=== PATIENT | female | born 1980 | race Caucasian/White ===

== ENCOUNTER 2017-09-17 10:27 | Emergency (ER) | payer BC ==
[2017-09-17 11:38] LABS: Absolute Monocytes 0.5 K/uL (0.1-1.3); Basophils % 0.7 % (0-1.3); Eosinophils % 2.3 % (0-4.4); Hematocrit 42.3 % (36.0-45.0); Lymphocytes % 34.2 % (15.3-44.8); MCV 93.2 fL (80-100); MPV 8.8 fL (7.6-11.3); Monocytes % 5.7 % (3.3-12.3); RBC Red Blood Cell Count 4.53 M/uL (3.86-4.86)
[2017-09-17 11:52] LABS: Bicarbonate 27 mEq/L (21-31); Glucose Level 120 mg/dL (65-120); Lipase 19 U/L (22-51); Potassium 3.5 mEq/L (3.6-5.0); Sodium Level 139 mEq/L (135-145)
[2017-09-17 11:58] LABS: ALT/SGPT 20 IU/L (10-60); AST/SGOT 25 IU/L (10-42); Albumin 4.8 g/dL (3.2-5.5); Alkaline Phosphatase 68 IU/L (42-121); BUN Blood Urea Nitrogen 14 mg/dL (6-20); Bilirubin Direct < 0.1 mg/dL (0-0.2); Bilirubin Total 0.5 mg/dL (0.3-1.2); Magnesium 2.1 mg/dL (1.8-2.5); Protein, Total 8.1 g/dL (6.0-8.3)
[2017-09-17 12:16] LABS: Urine Blood NEGATIVE (NEG); Urine Glucose NEGATIVE (NEG); Urine Protein 1+ (NEG); Urine Specific Gravity >1.030 (1.005-1.030)
--- NOTE | 2017-09-17 12:29 | RAD REPORT ---
EXAM DESCRIPTION: Wil Single View09/17/2017 11:43 am CLINICAL HISTORY: Chest pain COMPARISON: none FINDINGS: The lungs appear clear of acute infiltrate. The heart is normal size IMPRESSION: No acute abnormalities displayed
[2017-09-17] MEDS ORDERED: MAGNE/ALUM HYDROXD 30 ML UCUP ONE (12:35)
[2017-09-17] MEDS ORDERED: LIDOCAINE VISCOUS 2% SOLN 15 ML UDC ONE (12:35)
--- NOTE | 2017-09-17 13:05 | RAD REPORT ---
EXAM DESCRIPTION: CT - Abdomen Pelvis W Contrast - 09/17/2017 12:53 pm CLINICAL HISTORY: Abdominal pain with nausea. COMPARISON: June 2016 TECHNIQUE: Computed axial tomography of the abdomen pelvis was obtained. 100 cc Isovue-300 was admin istered intravenously. Oral contrast was not requested which limits evaluation of bowel. All CT scans are performed using dose optimization technique as appropriate and may include automated exposure control or mA/KV adjustment according to patient size. FINDINGS: The liver, spleen, pancreas, adrenal and kidneys appear unremarkable. There is no evidence of diverticulitis. IMPRESSION: No acute abnormality is displayed.
--- NOTE | 2017-09-17 13:06 | RAD REPORT ---
EXAM DESCRIPTION: US - Abdomen Exam Limited - 09/17/2017 11:47 am CLINICAL HISTORY: Abdominal pain. COMPARISON: None. FINDINGS: The gallbladder wall is not thickened. A gallstone is not seen. The biliary tree is normal caliber. IMPRESSION: Unremarkable gallbladder ultrasound.
[2017-09-17] MEDS ORDERED: LORazepam 2 MG/ML VIAL ONE (14:00)
--- NOTE | 2017-09-17 14:03 | EKG ---
Test Date: 2017-09-17 Test Time: 11:11:27 Template Layout Worker: MARCELINO MEASUREMENT RESULTS: Intervals: Rate: 85 DC: 138 QRSD: 70 QT: 372 QTc: 442 [place]: P: 74 DC: 138 QRS: 75 T: 60 INTERPRETIVE STATEMENTS: Normal sinus rhythm Normal ECG No previous ECG available for comparison Electronically Signed On 09-17-17 14:03:04 CDT by Jean Marie Duval
--- NOTE | 2017-09-17 14:04 | ER ---
Nurse's Notes [facility] Name: Feli Espinoza Age: 36 yrs Sex: Female : 1980 Arrival Date: 09/17/2017 Time: 10:33 Bed 19 Private MD: Out, [facility] Diagnosis: Anxiety disorder, unspecified Presentation: 09/17 10:36 Presenting complaint: Patient states: I was recently diagnosed with MVP but I have been la1 having worsening SOB since then (about 2 weeks ago). Transition of care: patient was not received from another setting of care. Onset of symptoms was September 17, 2017. Initial Sepsis Screen: Does the patient meet any 2 criteria? No. Patient's initial sepsis screen is negative. Does the patient have a suspected source of infection? No. Patient's initial sepsis screen is negative. Care prior to arrival: None. 10:36 Method Of Arrival: Ambulatory la1 10:36 Acuity: CARIDAD 3 la1 Historical: - Allergies: 10:35 No Known Allergies; la1 - PMHx: 10:35 mvp; Anxiety; la1 - Immunization history:: Adult Immunizations up to date. - Social history:: Smoking status: Patient/guardian denies using tobacco. Screenin:37 Abuse screen: Denies threats or abuse. Denies injuries from another. Nutritional ch screening: No deficits noted. Tuberculosis screening: No symptoms or risk factors identified. Fall Risk None identified. Assessment: 11:37 General: Appears in no apparent distress. comfortable, Behavior is anxious. Pain: ch Denies pain. Cardiovascular: Heart tones S1 S2 present Capillary refill < 3 seconds in bilateral fingers toes Clubbing of nail beds is absent Patient's skin is warm and dry. Pulses are all present. Edema is absent. Rhythm is sinus rhythm. Respiratory: Airway is patent Respiratory effort is even, unlabored, Breath sounds are clear bilaterally. Onset: The symptoms/episode began/occurred gradually. GI: No signs and/or symptoms were reported involving the gastrointestinal system. Abdomen is round non-distended. : No signs and/or symptoms were reported regarding the genitourinary system. Derm: Skin is pink, warm \T\ dry. 11:40 Reassessment: gallbladder US completed. ch 12:47 Reassessment: Patient appears in no apparent distress at this time. Patient and/or ch family updated on plan of care and expected duration. Pain level reassessed. Patient is alert, oriented x 3, equal unlabored respirations, skin warm/dry/pink. pt refuses GI coctail now, states she want to know what is wrong with her. I tell pt that we still have studies pending. pt transported to CT via wheelchair now. aaox4, no s/s of distress. pt appears anxious, and speak rapidly. pt states she feelsslightly better. 13:00 Reassessment: Patient appears in no apparent distress at this time. No changes from ch previously documented assessment. 14:05 Reassessment: Patient appears in no apparent distress at this time. Patient and/or ch family updated on plan of care and expected duration. Pain level reassessed. pt states she wants to go home.pt medicated per orders, and discharged. 14:20 Reassessment: Patient appears in no apparent distress at this time. Patient and/or ch family updated on plan of care and expected duration. Pain level reassessed. Patient is alert, oriented x 3, equal unlabored respirations, skin warm/dry/pink. Vital Signs: 10:37 BP 137 / 100; Pulse 85; Resp 19; Temp 97.3; Pulse Ox 100% on R/A; la1 11:37 Pulse 76; Resp 14; Pulse Ox 99% on R/A; Pain 0/10; ch 12:30 BP 127 / 78; Pulse 62; Resp 14; Temp 97.8; Pulse Ox 99% on R/A; Pain 0/10; ch 13:43 BP 119 / 76; Pulse 84; Resp 16; Temp 98.3; Pulse Ox 99% on R/A; Pain 0/10; ch 14:05 BP 132 / 90; Pulse 73; Resp 15; Temp 98.3; Pulse Ox 99% on R/A; Pain 0/10; ch ED Course: 10:33 Patient arrived in ED. sb2 10:35 Out, of Town is Private Physician. sb2 10:37 Triage completed. la1 10:37 Arm band placed on left wrist. la1 10:41 Suhas Stratton PA is PHCP. jr8 10:41 Carlos Monson MD is Attending Physician. jr8 11:28 Initial lab(s) drawn, by me, sent to lab. EKG done, by ED staff, reviewed by Suhas CASTANO. Inserted saline lock: 20 gauge in left antecubital area, using aseptic technique. Blood collected. 11:31 Lilly Mosley, RN is Primary Nurse. ch 11:37 No apparent distress. Resting quietly. ch 11:37 Patient has correct armband on for positive identification. Bed in low position. Call light in reach. Side rails up X 1. Adult w/ patient. phototypesetting equipment monitor on. Pulse ox on. NIBP on. Warm blanket given. 11:37 No provider procedures requiring assistance completed. ch 11:39 X-ray completed. Portable x-ray completed in exam room. jw2 11:40 XRAY Chest (1 view) In Process Unspecified. EDMS 11:43 Ultrasound completed. Patient tolerated well. sg3 12:53 CT Abd/Pelvis - W/Contrast In Process Unspecified. EDMS 12:54 CT completed. Patient tolerated procedure well. Patient moved back from CT. cw1 14:05 IV discontinued, intact, bleeding controlled, No redness/swelling at site. Pressure ch dressing applied. Administered Medications: 13:20 Not Given (Physician Discretion): GI Cocktail without - (Maalox Suspension 30 jr8 ml, Lidocaine Liquid 2 % 15 ml) PO once 13:55 Drug: Ativan 1 mg Route: IVP; Site: left antecubital; 14:20 Follow up: Response: No adverse reaction; Marked relief of symptoms ch Outcome: 14:03 Discharge ordered by MD. blue 14:21 Discharged to home ambulatory, with family. ch 14:21 Condition: stable 14:21 Discharge instructions given to patient, family, Instructed on discharge instructions, follow up and referral plans. Demonstrated understanding of instructions, follow-up care. 14:21 Patient left the ED. ch Signatures: Dispatcher [employer] EDLA Lilly Mosley, RN Neri Lord ch, Crystal cw1 Suhas Stratton PA PA jr8 Amilcar Castañeda RN RN Lauryn Dumont jw2 Meme Jesus sg3 Sweetie Groves sb2 Corrections: (The following items were deleted from the chart) 11:47 11:47 In radiology for Abdomen Limited+US.RAD.BRZ. EDMS sg3
--- NOTE | 2017-09-17 14:04 | EDPHYS ---
Physician Documentation [facility] Name: Feli Espinoza Age: 36 yrs Sex: Female : 1980 Arrival Date: 09/17/2017 Time: 10:33 Bed 19 Private MD: Out, [facility] ED Physician Carlos Monson HPI: 09/17 11:12 This 36 yrs old Female presents to ER via Ambulatory with complaints of jr8 Shortness Of Breath. 11:12 Onset: The symptoms/episode began/occurred gradually. Associated signs and symptoms: jr8 Pertinent positives: abdominal discomfort . Severity of symptoms: At their worst the symptoms were moderate in the emergency department the symptoms are unchanged. The patient has not experienced similar symptoms in the past. The patient has been recently seen by a physician:. Patient stated that she had originally gone to [facility] for shortness of breath. Diagnosed with MVP and anxiety. Had follow up with cardiology. Echocardiogram, stress test, and angiogram was performed. MVP diagnosed but of mild variance. No other acute cardiac findings noted. Given Bystolic and Klonopin. Stated that she still continues to have tight bloating epigastric feeling and a sense of not being able to take a deep breath along with having shortness of breath. Klonopin not helping with the shortness of breath . Historical: - Allergies: 10:35 No Known Allergies; la1 - PMHx: 10:35 mvp; Anxiety; la1 - Immunization history:: Adult Immunizations up to date. - Social history:: Smoking status: Patient/guardian denies using tobacco. ROS: 11:12 Eyes: Negative for injury, pain, redness, and discharge, ENT: Negative for injury, jr8 pain, and discharge, Neck: Negative for injury, pain, and swelling, Cardiovascular: Negative for chest pain, palpitations, and edema, Back: Negative for injury and pain, MS/Extremity: Negative for injury and deformity, Skin: Negative for injury, rash, and discoloration, Neuro: Negative for headache, weakness, numbness, tingling, and seizure. 11:12 Respiratory: Positive for shortness of breath, Negative for cough, dyspnea on exertion, hemoptysis, orthopnea, pleurisy, sputum production, wheezing. 11:12 Abdomen/GI: Positive for nausea, abdominal distension. Exam: 11:12 Eyes: Pupils equal round and reactive to light, extra-ocular motions intact. Lids and jr8 lashes normal. Conjunctiva and sclera are non-icteric and not injected. Cornea within normal limits. Periorbital areas with no swelling, redness, or edema. ENT: Nares patent. No nasal discharge, no septal abnormalities noted. Tympanic membranes are normal and external auditory canals are clear. Oropharynx with no redness, swelling, or masses, exudates, or evidence of obstruction, uvula midline. Mucous membranes moist. Neck: Trachea midline, no thyromegaly or masses palpated, and no cervical lymphadenopathy. Supple, full range of motion without nuchal rigidity, or vertebral point tenderness. No Meningismus. Cardiovascular: Regular rate and rhythm with a normal S1 and S2. No gallops, murmurs, or rubs. Normal PMI, no JVD. No pulse deficits. Respiratory: Lungs have equal breath sounds bilaterally, clear to auscultation and percussion. No rales, rhonchi or wheezes noted. No increased work of breathing, no retractions or nasal flaring. Back: No spinal tenderness. No costovertebral tenderness. Full range of motion. Skin: Warm, dry with normal turgor. Normal color with no rashes, no lesions, and no evidence of cellulitis. MS/ Extremity: Pulses equal, no cyanosis. Neurovascular intact. Full, normal range of motion. Neuro: Awake and alert, GCS 15, oriented to person, place, time, and situation. Cranial nerves II-XII grossly intact. Motor strength 5/5 in all extremities. Sensory grossly intact. Cerebellar exam normal. Normal gait. 11:12 Constitutional: The patient appears alert, awake, anxious. 11:12 Abdomen/GI: Inspection: abdomen appears normal, Bowel sounds: active, all quadrants, Palpation: soft, in all quadrants, mild abdominal tenderness, in the epigastric area and right upper quadrant, mass, is not appreciated, rebound tenderness, is not appreciated, voluntary guarding, is not appreciated, involuntary guarding, is not appreciated, no appreciated organomegaly, Indicators: McBurney's point is not tender, Vang's sign is negative, Rovsing's sign is negative, Obturator sign is negative, Psoas sign is negative, Liver: no appreciated palpable abnormalities, tenderness, is not appreciated. Vital Signs: 10:37 BP 137 / 100; Pulse 85; Resp 19; Temp 97.3; Pulse Ox 100% on R/A; la1 11:37 Pulse 76; Resp 14; Pulse Ox 99% on R/A; Pain 0/10; ch 12:30 BP 127 / 78; Pulse 62; Resp 14; Temp 97.8; Pulse Ox 99% on R/A; Pain 0/10; ch 13:43 BP 119 / 76; Pulse 84; Resp 16; Temp 98.3; Pulse Ox 99% on R/A; Pain 0/10; ch 14:05 BP 132 / 90; Pulse 73; Resp 15; Temp 98.3; Pulse Ox 99% on R/A; Pain 0/10; ch MDM: 10:41 Patient medically screened. [facility] 14:02 Data reviewed: vital signs, nurses notes, lab test result(s), EKG, radiologic studies, [facility] CT scan, plain films, ultrasound, and as a result, I will discharge patient. Data interpreted: Pulse oximetry: on room air is 99 %. Interpretation: normal. Counseling: I had a detailed discussion with the patient and/or guardian regarding: the historical points, exam findings, and any diagnostic results supporting the discharge/admit diagnosis, lab results, radiology results, the need for outpatient follow up, a family practitioner, a objects conservator, to return to the emergency department if symptoms worsen or persist or if there are any questions or concerns that arise at home. 09/17 10:59 Order name: Basic Metabolic Panel; Complete Time: 12:08 09/17 10:59 Order name: BNP; Complete Time: 12:20 [facility] 09/17 10:59 Order name: CBC with Diff; Complete Time: 11:49 09/17 10:59 Order name: LFT's; Complete Time: 12:08 09/17 10:59 Order name: Magnesium; Complete Time: 12:08 09/17 10:59 Order name: PT-INR; Complete Time: 11:55 09/17 10:59 Order name: Troponin (emerg Dept Use Only); Complete Time: 12:08 09/17 10:59 Order name: XRAY Chest (1 view); Complete Time: 12:37 09/17 10:59 Order name: Lipase; Complete Time: 12:08 09/17 10:59 Order name: DD; Complete Time: 11:55 09/17 11:18 Order name: US Abdomen Limited; Complete Time: 13:08 09/17 11:52 Order name: Urine Dipstick--Ancillary (enter results); Complete Time: 12:20 ag 09/17 11:52 Order name: Urine --Ancillary (enter results); Complete Time: 12:20 ag 09/17 12:10 Order name: CT Abd/Pelvis - W/Contrast; Complete Time: 13:09/17 10:59 Order name: EKG; Complete Time: 10:59 09/17 10:59 Order name: Cardiac monitoring; Complete Time: 11:37 09/17 10:59 Order name: EKG - Nurse/Tech; Complete Time: 11:37 09/17 10:59 Order name: IV Saline Lock; Complete Time: 11:37 09/17 10:59 Order name: Labs collected and sent; Complete Time: 11:37 09/17 10:59 Order name: O2 Per Protocol; Complete Time: 11:37 09/17 10:59 Order name: O2 Sat Monitoring; Complete Time: 11:37 09/17 10:59 Order name: Urine Dipstick-Ancillary (obtain specimen); Complete Time: 11:58 09/17 10:59 Order name: Urine Test (obtain specimen); Complete Time: 11:58 jr8 Administered Medications: 13:20 Not Given (Physician Discretion): GI Cocktail without - (Maalox Suspension 30 jr8 ml, Lidocaine Liquid 2 % 15 ml) PO once 13:55 Drug: Ativan 1 mg Route: IVP; Site: left antecubital; 14:20 Follow up: Response: No adverse reaction; Marked relief of symptoms ch Disposition: 09/18 09:18 Co-signature as Attending Physician, Carlos Monson MD I agree with the assessment and holli plan of care. Disposition: 09/17/17 14:03 Discharged to Home. Impression: Anxiety disorder, unspecified. - Condition is Stable. - Discharge Instructions: Panic Attacks, Generalized Anxiety Disorder. - Medication Reconciliation Form, Thank You Letter, Antibiotic Education, Prescription Opioid Use form. - Follow up: Private Physician; When: 2 - 3 days; Reason: Recheck today's complaints, Continuance of care, Re-evaluation by your physician. - Problem is new. - Symptoms have improved. Signatures: Dispatcher [employer] Lilly Rutledge, RN RN Carlos Montero MD MD cha Roszak, Josh, PA PA jr8 Amilcar Castañeda RN RN la1 Corrections: (The following items were deleted from the chart) 09/17 14:21 14:03 09/17/2017 14:03 Discharged to Home. Impression: Anxiety disorder, unspecified. Condition is Stable. Forms are Medication Reconciliation Form, Thank You Letter, Antibiotic Education, Prescription Opioid Use. Follow up: Private Physician; When: 2 - 3 days; Reason: Recheck today's complaints, Continuance of care, Re-evaluation by your physician. Problem is new. Symptoms have improved. jr8
[2017-09-17 14:27] VITALS: O2SAT 99
[2017-09-17 14:30] VITALS: TEMP 98.3
[2017-09-17 14:31] VITALS: BP 132/90
== END 2017-09-17 14:21 | disposition home or self-care (01) ==
LOC: ER 10:27
DX: F41.9 Anxiety disorder, unspecified (principal)
CPT/HCPCS: 36415; 71045; 74177; 76705; 80048; 80076; 81003; 81025; 83690; 83735; 83880; 84484; 85025; 85379; 85610; 93005; 96374; 99285; Q9967

== ENCOUNTER 2018-11-28 06:23 | Day surgery (SDC) | payer BC ==
[2018-11-26 13:48] LABS: Urine Appearance CLEAR; Urine Bilirubin NEGATIVE (NEG); Urine Blood NEGATIVE (NEG); Urine Color YELLOW; Urine Glucose NEGATIVE (NEG); Urine Protein NEGATIVE (NEG); Urine Urobilinogen 0.2 mg/dL (0.2-1.0)
[2018-11-26 13:50] LABS: Urine Microscopic Reflex ORDER UMIC
[2018-11-26 13:52] LABS: Absolute Lymphocytes (CBC) 2.2 K/uL (0.7-4.9); Basophils % 0.5 % (0-1.3); Hematocrit 41.5 % (36.0-45.0); Lymphocytes % 32.6 % (15.3-44.8); MPV 9.3 fL (7.6-11.3); RBC Red Blood Cell Count 4.35 M/uL (3.86-4.86)
[2018-11-26 13:56] LABS: Urine Bacteria 20-50 /HPF (<20); Urine Culture Reflex Order NOT NEEDED; Urine RBC <5 /HPF (NONE SEEN)
--- OUTSIDE RECORDS SUMMARY | 2018-11-28 06:26 | XMS REPORT ---
:1980 [facility] Address [address] [place] [address] Care Team Providers Name Role Phone Unavailable Unavailable Unavailable Problems This patient has no known problems. Allergies, Adverse Reactions, Alerts This patient has no known allergies or adverse reactions. Medications This patient has no known medications. Results Test Description Test Time Test Comments Text Results Atomic Results Result Comments Automated Differential 2018-11-08 23:01:16 Test Item Value Reference Range Comments Neutro Auto (test code=Neutro Auto) 71.9 % 36.0-70.0 Lymph Auto (test code=Lymph Auto) 22.8 % 12.0-44.0 Hamblen Auto (test code=Hamblen Auto) 4.4 % 0.0-11.0 Eos, Auto (test code=Eos, Auto) 0.2 % 0.0-7.0 Basophil Auto (test code=Basophil Auto) 0.5 % 0.0-2.0 Neutro Absolute (test code=Neutro Absolute) 6.4 x10 1.6-7.4 Lymph Absolute (test code=Lymph Absolute) 2.02 x10 .50-4.60 Hamblen Absolute (test code=H[place] Absolute) .39 x10 .00-1.20 Eos Absolute (test code=Eos Absolute) 0.02 x10 0.00-0.74 Baso Absolute (test code=Baso Absolute) 0.04 x10 0.00-0.21 IG [id number] 23:01:16 Test Item Value Reference Range Comments IG (test code=IG) 0.2 % 0.0-5.0 IG Abs (test code=IG Abs) 0 x10 Complete Blood Count with [id number] 23:01:15 Test Item Value Reference Range Comments WBC (test code=WBC) 8.9 x10 4.4-10.5 RBC (test code=RBC) 4.26 x10 3.75-5.20 Hgb (test code=Hgb) 13.6 g/dL 12.2-14.8 MCV (test code=MCV) 96.20 fL 80.00-100.00 Hct (test code=Hct) 41.0 % 36.5-44.4 MCHC (test code=MCHC) 33.20 g/dL 32.00-37.50 RDW CV (test code=RDW CV) 12.7 % 11.5-14.5 MCH (test code=MCH) 31.9 pg 27.0-32.5 Platelets (test 265.0 x10 140.0-440.0 code=Platelets) MPV (test code=MPV) 11.3 fL Slide Review (test code=Slide Auto Auto Result created by Review) GL_SJM_[id number]_AUTO nRBC (test code=nRBC) 0 NRBC Abs (test code=NRBC Abs) 0.00 x10 IPF (test code=IPF) 0 % Lipid [id number] 22:51:51 Test Item Value Reference Range Comments Cholesterol Total (test 152 mg/dL 0-200 RISK OF HEART DISEASEPublished code=Cholesterol Total) by [place] [employer] Analyte Optimal Borderline Increased RiskCHOL <200 200-239 >240TRIG <150 150-199 >200HDL Male >60 <40HDL Female >60 <50LDL <100 130-159 >160LDL Near optimal is 100-129 Triglycerides (test 64 mg/dL 9-200 code=Triglycerides) HDL (test code=HDL) 52 mg/dL 50-60 LDL (test code=LDL) 87 mg/dL 0-130 The equation being used in this calculation is LDL=(Chol - HDL) - (Trig / 5) VLDL (test code=VLDL) 13 mg/dL 5-40 The equation being used in this calculation is VLDL=Trig / 5 Chol/HDL (test 2.9 ratio 0.0-4.4 code=Chol/HDL) LDL/HDL Ratio (test 2 The equation being used in this code=LDL/HDL Ratio) calculation is LDL/HDL Ratio=LDL Calc/HDL Chol Comprehensive Metabolic [id number] 22:51:50 Test Item Value Reference Range Comments Sodium Level (test code=Sodium Level) 137.0 mmol/L 135.0-145.0 Potassium Level (test code=Potassium Level) 4.6 mmol/L 3.5-5.1 Chloride Level (test code=Chloride Level) 103 mmol/L 98-105 CO2 (test code=CO2) 27 mmol/L 22-29 Anion Gap (test code=Anion Gap) 7 mmol/L 7-16 BUN (test code=BUN) 15.50 mg/dL 6.00-20.00 Creatinine Level (test code=Creatinine Level) 0.50 mg/dL 0.50-0.90 BUN/Creat Ratio (test code=BUN/Creat Ratio) 31 Glucose Level (test code=Glucose Level) 95 mg/dL 70-115 Calcium Level (test code=Calcium Level) 9.3 mg/dL 8.3-10.5 Alk Phos (test code=Alk Phos) 52 U/L 35-104 Bilirubin Total (test code=Bilirubin Total) <0.1 mg/dL 0.1-0.9 Albumin Level (test code=Albumin Level) 4.2 g/dL 3.5-5.2 Protein Total (test code=Protein Total) 6.6 g/dL 6.4-8.3 ALT (test code=ALT) 13 U/L 1-33 AST (test code=AST) 16 U/L 1-32 Globulin (test code=Globulin) 2.4 g/dL 2.9-3.1 A/G Ratio (test code=A/G Ratio) 1.8 ratio Comprehensive Metabolic [id number] 22:51:50 Test Item Value Reference Range Comments Sodium Level (test 137.0 mmol/L 135.0-145.0 code=Sodium Level) Potassium Level (test 4.6 mmol/L 3.5-5.1 code=Potassium Level) Chloride Level (test 103 mmol/L 98-105 code=Chloride Level) CO2 (test code=CO2) 27 mmol/L 22-29 Anion Gap (test 7 mmol/L 7-16 code=Anion Gap) BUN (test code=BUN) 15.50 mg/dL 6.00-20.00 Creatinine Level (test 0.50 mg/dL 0.50-0.90 code=Creatinine Level) BUN/Creat Ratio (test 31 code=BUN/Creat Ratio) Glucose Level (test 95 mg/dL 70-115 code=Glucose Level) Calcium Level (test 9.3 mg/dL 8.3-10.5 code=Calcium Level) Alk Phos (test code=Alk 52 U/L 35-104 Phos) Bilirubin Total (test <0.1 mg/dL 0.1-0.9 code=Bilirubin Total) Albumin Level (test 4.2 g/dL 3.5-5.2 code=Albumin Level) Protein Total (test 6.6 g/dL 6.4-8.3 code=Protein Total) ALT (test code=ALT) 13 U/L 1-33 AST (test code=AST) 16 U/L 1-32 Globulin (test 2.4 g/dL 2.9-3.1 code=Globulin) A/G Ratio (test code=A/G 1.8 ratio Ratio) eGFR AA (test code=eGFR >60 mL/min/1.73 m2 eGFR (estimated AA) Glomerular Filtration Rate) is an estimated value, calculated from the patient's serum creatinine using the MDRD equation. It is NOT the patient's actual GFR. The eGFR provides a more clinically useful measure of kidney disease than serum creatinine alone.This calculation takes sex and race into account, if the information is provided. If the race is not provided, and the patient is -Af[place], multiply by 1.212. If sex is not provided, and the patient is female, multiply by 0.742. Results for patients <18 years of age have not been validated by the MDRD study and should be interpreted with caution. eGFR Result Interpretation:eGFR > or=60 is in the Normal RangeeGFR < 60 may mean kidney diseaseeGFR < 15 may mean kidney failure Ranges recommended by the National Kidney Foundation, http://nkdep.nih.gov Comprehensive Metabolic [id number] 22:51:50 Test Item Value Reference Range Comments Sodium Level (test 137.0 mmol/L 135.0-145.0 code=Sodium Level) Potassium Level (test 4.6 mmol/L 3.5-5.1 code=Potassium Level) Chloride Level (test 103 mmol/L 98-105 code=Chloride Level) CO2 (test code=CO2) 27 mmol/L 22-29 Anion Gap (test 7 mmol/L 7-16 code=Anion Gap) BUN (test code=BUN) 15.50 mg/dL 6.00-20.00 Creatinine Level (test 0.50 mg/dL 0.50-0.90 code=Creatinine Level) BUN/Creat Ratio (test 31 code=BUN/Creat Ratio) Glucose Level (test 95 mg/dL 70-115 code=Glucose Level) Calcium Level (test 9.3 mg/dL 8.3-10.5 code=Calcium Level) Alk Phos (test code=Alk 52 U/L 35-104 Phos) Bilirubin Total (test <0.1 mg/dL 0.1-0.9 code=Bilirubin Total) Albumin Level (test 4.2 g/dL 3.5-5.2 code=Albumin Level) Protein Total (test 6.6 g/dL 6.4-8.3 code=Protein Total) ALT (test code=ALT) 13 U/L 1-33 AST (test code=AST) 16 U/L 1-32 Globulin (test 2.4 g/dL 2.9-3.1 code=Globulin) A/G Ratio (test code=A/G 1.8 ratio Ratio) eGFR AA (test code=eGFR >60 mL/min/1.73 m2 eGFR (estimated AA) Glomerular Filtration Rate) is an estimated value, calculated from the patient's serum creatinine using the MDRD equation. It is NOT the patient's actual GFR. The eGFR provides a more clinically useful measure of kidney disease than serum creatinine alone.This calculation takes sex and race into account, if the information is provided. If the race is not provided, and the patient is -[place], multiply by 1.212. If sex is not provided, and the patient is female, multiply by 0.742. Results for patients <18 years of age have not been validated by the MDRD study and should be interpreted with caution. eGFR Result Interpretation:eGFR > or=60 is in the Normal RangeeGFR < 60 may mean kidney diseaseeGFR < 15 may mean kidney failure Ranges recommended by the National Kidney Foundation, http://nkdep.nih.gov eGFR Non-AA (test >60.00 mL/min/1.73 eGFR (estimated code=eGFR Non-AA) m2 Glomerular Filtration Rate) is an estimated value, calculated from the patient's serum creatinine using the MDRD equation. It is NOT the patient's actual GFR. The eGFR provides a more clinically useful measure of kidney disease than serum creatinine alone.This calculation takes sex and race into account, if the information is provided. If the race is not provided, and the patient is -[place], multiply by 1.212. If sex is not provided, and the patient is female, multiply by 0.742. Results for patients <18 years of age have not been validated by the MDRD study and should be interpreted with caution. eGFR Result Interpretation:eGFR > or=60 is in the Normal RangeeGFR < 60 may mean kidney diseaseeGFR < 15 may mean kidney failure Ranges recommended by the National Kidney Foundation, http://nkdep.nih.gov XR Chest 1 View [id number] 11:17:46Patient: MANJULA NEWBERRY Date/Time09/01/201710:56 CDTReason for ExamShortness of breathReportEXAM: XR Chest 1 View FrontalLOCATION: [id number]: Shortness of breathCOMPARISON: None available time of interpretation.FINDINGS:Single view of the chest.No indwelling lines or tubes.No pneumothorax.The lungs are clear. No pleural effusions are present. The mediastinal contours are unremarkable. No acute osseous findings are present.IMPRESSION:Noacute cardiopulmonary abnormality. Final Dictated by: MD Ramos Haider ADictated DT/TM: 09/01/2017 11:17 amSigned by : MD Ramos Haider ASignshahzad (Electronic Signature): 09/01/2017 11:17 am
[2018-11-28] MEDS ORDERED: Ringers Lactate 1,000 ML IV ONE ×2 (07:07→11:21)
[2018-11-28] MEDS ORDERED: SCOPOLAMINE HYDROBROMIDE PATCH TD ONE (07:07)
[2018-11-28] MEDS ORDERED: NA CHLORIDE 0.9% 1,000 ML ONE (07:19)
[2018-11-28] MEDS ORDERED: FENTANYL CITR 100 MCG/2 ML ONE (07:26)
[2018-11-28] MEDS ORDERED: PROPOFOL 200 MG/20 ML VIAL IV ONE (07:26)
[2018-11-28] MEDS ORDERED: ROCURONIUM 50 MG/5 ML VIAL IV ONE (07:26)
[2018-11-28] MEDS ORDERED: dexAMETHasone 10 MG/ML VIAL ONE (07:27)
[2018-11-28] MEDS ORDERED: MIDAZOLAM HCL 2 MG/2 ML INJ ONE (07:27)
[2018-11-28] MEDS ORDERED: NS 0.9% VIAL 30 ML ONE (07:27)
[2018-11-28] MEDS ORDERED: ONDANSETRON 4 MG/2 ML VIAL ONE (07:28)
[2018-11-28] MEDS ORDERED: VECURONIUM 10 MG/VIAL IV ONE (07:28)
[2018-11-28] MEDS ORDERED: LIDOCAINE 2% MPF 5 ML VIAL ONE (07:30)
[2018-11-28] MEDS ORDERED: EPHEDRINE SULF 50 MG/ML VIAL ONE (08:21)
[2018-11-28] MEDS ORDERED: Phenylephrine HCl 10 MG/ML 1 ML VIAL ONE (08:21)
[2018-11-28] MEDS ORDERED: NEOSTIGMINE 1 MG/ML -10 ML VIAL ONE (09:11)
[2018-11-28] MEDS ORDERED: GLYCOPYRROLATE 0.2 MG/ML SYR ONE (09:11)
[2018-11-28] MEDS ORDERED: KETOROLAC 30 MG/ML INJ ONE (09:16)
[2018-11-28] MEDS: HYDROMORPHONE HCL 1 MG/ML INJ ONE ×4 (09:47→10:20)
[2018-11-28] MEDS: HYDROCODONE/APAP 5/325 MG TAB ONE ×2 (11:00→12:24)
[2018-11-28] MEDS ORDERED: PROMETHAZINE 25 MG/ML VIAL ONE (11:09)
[2018-11-28 12:28] VITALS: BP 95/65; TEMP 98.2; O2SAT 100
--- NOTE | 2018-11-28 20:32 | OP ---
Date of Procedure: 11/28/2018 Surgeon: Nina Dillon MD Documentation Supervisor: Berta Aguila. Preoperative Diagnoses: Pelvic pain, menorrhagia, AUB-O/L/A, low back pain, and dysmenorrhea. Postoperative Diagnoses: Pelvic pain, menorrhagia, AUB-O/L/A, low back pain, dysmenorrhea, and left sigmoid adhesions. Procedures Performed: 1.Diagnostic hysteroscopy, D and C. 2.Diagnostic laparoscopy, lysis of adhesions of the sigmoid to the left lateral wall, then left salp ingectomy after salpingolysis, and right lateral wall peritoneal biopsy. Specimens: Endometrial curettings, right lateral wall peritoneal biopsy, and left tube. Anesthesia: General endotracheal. Complications: None. Drains: None. Patient's Condition: Stable. Findings: The left tube was adhered to the sigmoid and then the sigmoid adhered to the lateral wall all the way down to the base of the left uterosacral. Since the patient's pain was significant in th is location and going to the back, decided that this would be important to take down the adhesions an d these were taken down. The tube was also removed because it had slight dilatation and the adhesion s to the bowel. There was a paratubal cyst as well. The right tube appeared to be unremarkable, bot h ovaries unremarkable. Possible peritoneal lesions, not consistent with endometriosis, but suspicio us in the right lateral wall immediately lateral to the right uterosacral ligament about 3 cm away fr om the insertion of the uterosacral. This was excised with scissors and sent for biopsy. Indications: Patient is a 38-year-old who presented to me with severe left lower quadrant pain and l eft back pain. She was in the ER and evaluated for her pain and on evaluation in the office, no evid ence of any pelvic inflammatory disease, no adnexal masses were noted. Her imaging from the ER was r eviewed and there were no significant masses either. Patient has some bowel symptoms including bloat ing and constipation. She was referred to GI for this. However, since her pain has been cyclical wi th heavy periods and the pelvic pain is recent in onset and severe, suspicion for endometriosis was h igh. She was told by Dr. Murphy in the past that she could have endometriosis. She also had back wor kup by Dr. Pemberton who diagnosed her with bulging lumbar disk and she had gotten some injections and narcotics in the past as well. So, we discussed overall all her findings and potential diagnosis of endometriosis. If this was not present, then she would have to follow up with her GI and continue t he workup. No necessity for hysterectomy, which is what the patient had contemplated at one point. So, diagnostic hysteroscopy to make sure there is no atypia or malignancy and laparoscopy to rule in or rule out endometriosis and if there is any other pathology, I would address it at the time. Description Of Procedure: After informed consent was verified, she was taken back to OR, placed in s upine fashion on the operating table. After general anesthesia was given, she was placed in a dorsal lithotomy position, arms tucked by the side, positioning checked, pump started SCDs, and time-out do ne. Pelvic exam was performed. Uterus found to be enlarged, about 8 weeks' size, well mobile, no no dularity in the uterosacral ligaments was noted. Abdomen, vulva, vagina, and perineum were prepped and draped in a sterile fashion. Hadley was placed to drain the bladder. Cervix was exposed with a speculum. Anterior lip grasped with 2 Allis clamps. SlimLine diagnostic hysteroscope with a 30-degree lens and normal saline was used for direct hyster oscopy through the cervical canal and uterine cavity was entered. The endometrium appeared to be thi ckened. No intracavitary masses. Scope was removed. Endometrial curettings were performed thorough ly with the help of #2 and #4 curettes. Once this was done, a diagnostic VCare was introduced and fi xed in place. This area was draped. A 1 cm infraumbilical incision was made with a scalpel using the open laparoscopy technique. Fascia was incised, tagged, and peritoneum entered sharply with a knife. S retractor was placed. Eugene in troduced, site of entry checked, unremarkable upper abdominal surfaces including the gallbladder, jasson er, peritoneum above the liver were all visualized. Omentum appeared to be unremarkable as well. Pa tient was placed in Trendelenburg position, 5 mm left lower quadrant and suprapubic ports were placed to evaluate for endometriosis and findings as above. The left sigmoid was adhered to the lateral wa ll. The ureter was completely not visual. The left paracolic gutter was with adhesions and the tube was adhered to this in this complex. So, the distal part of the tube was dilated and appeared to be inflamed. The paratubal cyst was visualized, which was unremarkable. The ovary appeared to be comp letely unremarkable. No evidence of any endometriosis was found in the entire pelvis. So, I took do wn the adhesions due to the patient's symptoms being on the left as well. This started at the natura l attachment of the sigmoid and with the help of sharp dissection, the peritoneal adhesions were open ed up, not opening the peritoneum. From the distal aspect, I started to retract the bowel towards me and adhesions were taken down from the left lateral wall sharply with push-spread technique and crea ting windows. Then, the top dissection was started. The peritoneum posteriorly was opened up. Then , the ureter was identified at the level of the pelvic brim. As the ureter was kept medial, the carmen l adhesions were taken down laterally, staying in the plane without getting retroperitoneal. Once al l adhesions were taken down, the entire course of the ureter was well visualized and was unremarkable . The tubal adhesions had been also removed in the course of the dissection of the sigmoid adhesions . The mesosalpinx was incised, opened up with scissors, and windows were created to take down the tu be. The distal part of the mesosalpinx was taken with the EnSeal. The proximal part was then dissec phoebe with the EnSeal as well and removed in its entirety. Specimen was retrieved through the umbilica l port. Thorough irrigation and suction were performed. There were some erythematous spots on the p eritoneum lateral to the uterosacral ligament, about 3-5 cm proximal to the insertion at the uterus. This was picked up. The peritoneum was incised with scissors and the entire lesion was excised with the help of the same. There was excellent hemostasis. Thorough irrigation and suction were perform ed again. The trocars were removed under direct vision and no evidence of any bleeding. Gas was yunier ufflated. Umbilical port was removed under direct vision and the fascia closed with the help of the tag sutures tied on both sides. Subcutaneous had simple 0 Vicryl placed and then all skin incisions closed with the help of interrupted 4-0 Vicryls. VCare and Hadley were removed. Instrument, needle, and sponge counts were correct at the end of the case. The patient tolerated the procedure well, and she was extubated in the OR and taken to PACU in a stable condition. She will follow up with me in 1 week. She has been given 20 tablets of [place] and instructed that she cannot take her tramadol with it. was present at the time I counseled the patient and is aware. Ibuprofen every 6 hours 600 mg orally with some food. If there are any complaints, then she will call us. MICHAEL Voice ID: [id number] Report ID: [id number]
== END 2018-11-28 12:15 | disposition home or self-care (01) ==
LOC: OR 06:23
PROVIDERS: ATTEND Obstetrics & Gynecology
PROC: 0WBF4ZX Excision of Abdominal Wall, Percutaneous Endoscopic Approach, Diagnostic (ICD-10-PCS; 2018-11-28)
PROC: 0UDB7ZX Extraction of Endometrium, Via Natural or Artificial Opening, Diagnostic (ICD-10-PCS; 2018-11-28)
PROC: 0UJD8ZZ Inspection of Uterus and Cervix, Via Natural or Artificial Opening Endoscopic (ICD-10-PCS; 2018-11-28)
PROC: 0UT64ZZ Resection of Left Fallopian Tube, Percutaneous Endoscopic Approach (ICD-10-PCS; principal; 2018-11-28 07:30)
DX: N80.0 Endometriosis of uterus (principal); N83.8 Other noninflammatory disorders of ovary, fallopian tube and broad ligament; N92.0 Excessive and frequent menstruation with regular cycle; N93.9 Abnormal uterine and vaginal bleeding, unspecified; N94.6 Dysmenorrhea, unspecified; M54.5 Low back pain; N73.6 Female pelvic peritoneal adhesions (postinfective); I34.1 Nonrheumatic mitral (valve) prolapse; F41.9 Anxiety disorder, unspecified; F32.9 Major depressive disorder, single episode, unspecified; F17.210 Nicotine dependence, cigarettes, uncomplicated; Z79.899 Other long term (current) drug therapy
CPT/HCPCS: 58661; 49321; 58558; 85025; 36415; 86900; 86850; 81025; 86901; 88302; 88305; J2704; J2710; J2550; J2370; J2250; J3010; J1100; J1170 ×2; J7030; J2405; 81003; 81015

== ENCOUNTER 2019-03-22 15:31 | Emergency (ER) | payer BC ==
--- OUTSIDE RECORDS SUMMARY | 2019-03-22 15:34 | XMS REPORT ---
:1980 [facility] Address [address] [place] [address] Care Team Providers Name Role Phone Unavailable [...] Auto (test code=Lymph Auto) 22.8 % 12.0-44.0 Pen[place] Auto (test code=[place] Auto) 4.4 % 0.0-11.0 Eos, Auto (test code=Eos, Auto) 0.2 % 0.0-7.0 Basophil Auto (test code=Basophil Auto) 0.5 % 0.0-2.0 Neutro Absolute (test code=Neutro Absolute) 6.4 x10 1.6-7.4 Lymph Absolute (test code=Lymph Absolute) 2.02 x10 .50-4.60 [place] Absolute (test code=[place] Absolute) .39 x10 .00-1.20 Eos Absolute (test code=Eos Absolute) 0.02 x10 0.00-0.74 Baso Absolute (test code=Baso Absolute) 0.04 x10 0.00-0.21 IG [id number] 23:01:16 Test Item Value Reference Range Comments IG (test code=IG) 0.2 % 0.0-5.0 IG Abs (test code=IG Abs) 0 x10 Complete Blood Count with [id number] 23:01:15 Test Item Value Reference Range Comments [...] x10 IPF (test code=IPF) 0 % Lipid [id number] 22:51:51 Test Item Value Reference Range Comments Cholesterol Total (test 152 mg/dL 0-200 RISK OF HEART DISEASEPublished code=Cholesterol Total) by [place] [employer] Analyte Optimal Borderline Increased RiskCHOL [...] is LDL/HDL Ratio=LDL Calc/HDL Chol Comprehensive Metabolic [id number] 22:51:50 Test Item Value Reference Range Comments [...] (test code=A/G Ratio) 1.8 ratio Comprehensive Metabolic [id number] 22:51:50 Test Item Value Reference Range Comments [...] is not provided, and the patient is -[place], multiply by 1.212. If sex is not [...] the National Kidney Foundation, http://nkdep.nih.gov Comprehensive Metabolic [id number] 22:51:50 Test Item Value Reference Range Comments [...] is not provided, and the patient is -[place], multiply by 1.212. If sex is not [...] is not provided, and the patient is -[place], multiply by 1.212. If sex is not [...] Kidney Foundation, http://nkdep.nih.gov XR Chest 1 View [id number] 11:17:46Patient: MANJULA NEWBERRY Date/Time09/01/201710:56 CDTReason for ExamShortness of breathReportEXAM: XR Chest 1 View FrontalLOCATION: [id number]: Shortness of breathCOMPARISON: None available time of [...]
[2019-03-22 16:25] LABS: Absolute Lymphocytes (CBC) 2.6 K/uL (0.7-4.9); Basophils % 0.4 % (0-1.3); Hematocrit 43.2 % (36.0-45.0); Lymphocytes % 28.3 % (15.3-44.8); MPV 9.3 fL (7.6-11.3); RBC Red Blood Cell Count 4.48 M/uL (3.86-4.86)
[2019-03-22 16:41] LABS: BUN Blood Urea Nitrogen 14 mg/dL (7-18); Bicarbonate 29 mmol/L (21-32); Glucose Level 100 mg/dL (74-106); Potassium 3.7 mmol/L (3.5-5.1); Sodium Level 140 mmol/L (136-145)
[2019-03-22 17:30] LABS: Urine Blood NEGATIVE (NEG); Urine Glucose NEGATIVE (NEG); Urine Protein NEGATIVE (NEG); Urine pH 7.5 (5.0-7.0)
[2019-03-22] MEDS ORDERED: KETOROLAC 30 MG/ML INJ ONE (17:40)
[2019-03-22] MEDS ORDERED: ONDANSETRON 4 MG/2 ML VIAL ONE (18:25)
[2019-03-22] MEDS ORDERED: MORPHINE 4 MG/ML SYR ONE (18:25)
--- NOTE | 2019-03-22 18:46 | ER ---
Nurse's Notes [facility] Name: Feli Espinoza Age: 38 yrs Sex: Female : 1980 Arrival Date: 03/22/2019 Time: 15:34 Bed 25 Private MD: Diagnosis: Irregular menstruation, unspecified;Low back pain Presentation: 03/22 15:34 Presenting complaint: Patient states: was on menstrual cycle for 2 weeks with clots and sv stopped Monday. Yesterday started having vaginal brown spotting only when she wipes. Today started having red vaginal bleeding and back pain, reports yesterday she was having right upper thigh pain and left groin pain. c/o anxiety and lightheadedness. Transition of care: patient was not received from another setting of care. Onset of symptoms was March 21, 2019. Care prior to arrival: None. 15:34 Method Of Arrival: Ambulatory sv 15:34 Acuity: CARIDAD 2 sv 15:40 Risk Assessment: Do you want to hurt yourself or someone else? Patient reports no tr5 desire to harm self or others. Initial Sepsis Screen: Does the patient meet any 2 criteria? Temp <36.0*C (96.8*F)) or > 38.3*C (100.9*F). HR > 90 bpm. Does the patient have a suspected source of infection? No. Patient's initial sepsis screen is negative. Historical: - Allergies: 15:37 adhesive tape; sv - PMHx: 15:37 Anxiety; MVP; sv 15:39 Mitral valve prolapse; Hypertension; sv - Immunization history:: Adult Immunizations up to date. - Social history:: Smoking status: Patient/guardian denies using tobacco, never smoked. - Ebola Screening: : No symptoms or risks identified at this time. Screenin:00 Abuse screen: Denies threats or abuse. Nutritional screening: No deficits noted. tr5 Tuberculosis screening: No symptoms or risk factors identified. Fall Risk None identified. Assessment: 16:00 General: Appears uncomfortable, Behavior is calm, cooperative, appropriate for age. tr5 Pain: Complains of pain in right low back Pain currently is 8 out of 10 on a pain scale. Quality of pain is described as aching. Neuro: Level of Consciousness is awake, alert, obeys commands, Oriented to person, place, time, Crate Icer are equal bilaterally Moves all extremities. Cardiovascular: Heart tones present Capillary refill < 3 seconds Pulses are all present. Edema is absent. Respiratory: Airway is patent Respiratory effort is even, unlabored, Respiratory pattern is regular, symmetrical. GI: No signs and/or symptoms were reported involving the gastrointestinal system. : Urine is clear, Reports vaginal bleeding that is bright red. EENT: No signs and/or symptoms were reported regarding the EENT system. Derm: No signs and/or symptoms reported regarding the dermatologic system. Musculoskeletal: No signs and/or symptoms reported regarding the musculoskeletal system. 17:00 Reassessment: Patient appears in no apparent distress at this time. No changes from tr5 previously documented assessment. Patient and/or family updated on plan of care and expected duration. Pain level reassessed. Patient is alert, oriented x 3, equal unlabored respirations, skin warm/dry/pink. 18:00 Reassessment: Patient appears in no apparent distress at this time. Patient and/or tr5 family updated on plan of care and expected duration. Pain level reassessed. Patient is alert, oriented x 3, equal unlabored respirations, skin warm/dry/pink. Vital Signs: 15:37 BP 149 / 113; Pulse 92; Resp 22; Temp 98.3(O); Pulse Ox 100% ; Weight 54.43 kg; Height sv 5 ft. 1 in. (154.94 cm); Pain 8/10; 17:35 BP 139 / 99; Pulse 83; Resp 16; Pulse Ox 100% on R/A; tr5 18:36 BP 157 / 80; Pulse 101; Resp 17; Pulse Ox 99% on R/A; tr5 15:37 Body Mass Index 22.67 (54.43 kg, 154.94 cm) sv ED Course: 15:34 Patient arrived in ED. sv 15:35 Catarina Terry F[facility]-C [facility]. kb 15:35 Helio Rosas MD is Attending Physician. kb 15:36 Triage completed. sv 15:37 Arm band placed on. sv 15:48 Bret Warner, BONG is Primary Nurse. tr5 16:00 Bed in low position. Call light in reach. Side rails up X 1. tr5 16:00 Initial lab(s) drawn, by me, sent to lab. Inserted saline lock: 22 gauge in left tr5 antecubital area, using aseptic technique. 16:40 Urine collected: clean catch specimen, clear, loly colored. jp3 17:16 US Transvaginal Study (Probe) In Process Unspecified. EDMS 18:09 No provider procedures requiring assistance completed. IV discontinued. tr5 Administered Medications: 17:45 Drug: TORadol - Ketorolac 15 mg Route: IVP; Site: left antecubital; tr5 18:14 Follow up: Response: Pain is unchanged, physician notified tr5 18:33 Drug: morphine 4 mg {Note: RASS:0.} Route: IVP; Site: left antecubital; tr5 18:33 Drug: Zofran 4 mg Route: IVP; Site: left antecubital; tr5 Outcome: 18:09 Discharged to home via wheelchair, with family. tr5 18:09 Condition: stable 18:09 Discharge instructions given to patient, family, Instructed on discharge instructions, follow up and referral plans. medication usage, Demonstrated understanding of instructions, follow-up care, medications, Prescriptions given X 1. 18:45 Discharge ordered by . kb 19:22 Patient left the ED. tr5 Signatures: Dispatcher [employer] EDSC Catarina Terry, SHAHNAZ DE ANDA-Twyla Bonilla, RN RN Dago Chin jp3 Bret Warner, RN RN tr5 Corrections: (The following items were deleted from the chart) 15:37 15:34 Presenting complaint: Patient states: was on menstrual cycle for 2 weeks with sv clots and stopped Monday. Yesterday started having vaginal brown spotting only when she wipes. Today started having red vaginal bleeding. sv 15:37 15:34 Presenting complaint: Patient states: was on menstrual cycle for 2 weeks with sv clots and stopped Monday. Yesterday started having vaginal brown spotting only when she wipes. Today started having red vaginal bleeding and back pain, reports yesterday she was having right upper thigh pain. sv 15:39 15:37 Temp 98.3F Oral; 54.43 kg; Height 5 ft. 1 in.; BMI: 22.6; sv sv 15:40 15:34 Presenting complaint: Patient states: was on menstrual cycle for 2 weeks with sv clots and stopped Monday. Yesterday started having vaginal brown spotting only when she wipes. Today started having red vaginal bleeding and back pain, reports yesterday she was having right upper thigh pain and left groin pain. sv 15:40 15:34 Acuity: CARIDAD 3 sv sv 18:34 18:33 morphine 4 mg IVP in left antecubital tr5 tr5
--- NOTE | 2019-03-22 18:46 | EDPHYS ---
Physician Documentation [facility] Name: Feli Espinoza Age: 38 yrs Sex: Female : 1980 Arrival Date: 03/22/2019 Time: 15:34 Bed 25 Private MD: ED Physician Helio Rosas HPI: 03/22 17:35 This 38 yrs old Female presents to ER via Ambulatory with complaints of kb Vaginal Bleeding, Back Pain. 17:35 The patient presents with vaginal bleeding that is. Onset: The symptoms/episode kb began/occurred 2 week(s) ago. Modifying factors: The symptoms are alleviated by nothing, the symptoms are aggravated by nothing. Associated signs and symptoms: Pertinent positives: vaginal bleeding. Severity of symptoms: At their worst the symptoms were moderate, in the emergency department the symptoms have improved. The patient has not experienced similar symptoms in the past. The patient has not recently seen a physician. Pt reports her last period lasted 2 weeks, stopped on Monday. Started having spotting again yesterday that was a brown color and today it is bright red again. States she has never had a period that lasted that long. Is concerned about uterine cancer because it runs in the family and her cousin was just diagnosed. States that her anxiety has been threw the roof lately. Pt appears anxious during history, tearful and states "I'm getting emotional, but I'm trying not to.". Historical: - Allergies: 15:37 adhesive tape; sv - PMHx: 15:37 Anxiety; MVP; sv 15:39 Mitral valve prolapse; Hypertension; sv - Immunization history:: Adult Immunizations up to date. - Social history:: Smoking status: Patient/guardian denies using tobacco, never smoked. - Ebola Screening: : No symptoms or risks identified at this time. ROS: 17:33 Constitutional: Negative for fever, chills, and weight loss, Neck: Negative for injury, kb pain, and swelling, Cardiovascular: Negative for chest pain, palpitations, and edema, Respiratory: Negative for shortness of breath, cough, wheezing, and pleuritic chest pain, Abdomen/GI: Negative for nausea, vomiting, diarrhea, and constipation. + left pelvic pain MS/Extremity: Negative for injury and deformity, Skin: Negative for injury, rash, and discoloration, Neuro: Negative for headache, weakness, numbness, tingling, and seizure. 17:33 Back: Positive for pain at rest, pain with movement, of the low back area. 17:33 : Positive for vaginal bleeding. Exam: 17:33 Constitutional: This is a well developed, well nourished patient who is awake, alert, kb and in no acute distress. Head/Face: Normocephalic, atraumatic. Neck: Trachea midline, no thyromegaly or masses palpated, and no cervical lymphadenopathy. Supple, full range of motion without nuchal rigidity, or vertebral point tenderness. No Meningismus. Chest/axilla: Normal chest wall appearance and motion. Nontender with no deformity. No lesions are appreciated. Cardiovascular: Regular rate and rhythm with a normal S1 and S2. No gallops, murmurs, or rubs. Normal PMI, no JVD. No pulse deficits. Respiratory: Lungs have equal breath sounds bilaterally, clear to auscultation and percussion. No rales, rhonchi or wheezes noted. No increased work of breathing, no retractions or nasal flaring. Abdomen/GI: Soft, non-tender, with normal bowel sounds. No distension or tympany. No guarding or rebound. No evidence of tenderness throughout. Back: No spinal tenderness. No costovertebral tenderness. Full range of motion. Skin: Warm, dry with normal turgor. Normal color with no rashes, no lesions, and no evidence of cellulitis. MS/ Extremity: Pulses equal, no cyanosis. Neurovascular intact. Full, normal range of motion. Neuro: Awake and alert, GCS 15, oriented to person, place, time, and situation. Cranial nerves II-XII grossly intact. Motor strength 5/5 in all extremities. Sensory grossly intact. Cerebellar exam normal. Normal gait. Vital Signs: 15:37 BP 149 / 113; Pulse 92; Resp 22; Temp 98.3(O); Pulse Ox 100% ; Weight 54.43 kg; Height sv 5 ft. 1 in. (154.94 cm); Pain 8/10; 17:35 BP 139 / 99; Pulse 83; Resp 16; Pulse Ox 100% on R/A; tr5 18:36 BP 157 / 80; Pulse 101; Resp 17; Pulse Ox 99% on R/A; tr5 15:37 Body Mass Index 22.67 (54.43 kg, 154.94 cm) sv MDM: 15:40 Patient medically screened. kb 15:53 Data reviewed: vital signs, nurses notes. Data interpreted: Pulse oximetry: on room air kb is 100 %. Interpretation: normal. 18:44 Counseling: I had a detailed discussion with the patient and/or guardian regarding: the kb historical points, exam findings, and any diagnostic results supporting the discharge/admit diagnosis, lab results, radiology results, the need for outpatient follow up, an OB/Gyne specialist, to return to the emergency department if symptoms worsen or persist or if there are any questions or concerns that arise at home. 19:20 ED course: US tech impression 4cm and 2cm lesions on uterus. Ovaries unremarkable. Pt kb educated to follow up with ENGINEER AND GEOLOGIST for further evaluation. 03/22 15:54 Order name: CBC with Diff; Complete Time: 16:30 kb 03/22 15:54 Order name: Basic Metabolic Panel; Complete Time: 16:43 kb 03/22 15:54 Order name: US Transvaginal Study (Probe) kb 03/22 16:49 Order name: Urine Dipstick--Ancillary (enter results); Complete Time: 17:32 ms 03/22 16:49 Order name: Urine --Ancillary (enter results); Complete Time: 17:32 ms 03/22 15:38 Order name: Urine Dipstick-Ancillary (obtain specimen); Complete Time: 16:49 kb 03/22 15:38 Order name: Urine Test (obtain specimen); Complete Time: 16:49 kb 03/22 15:54 Order name: IV Start; Complete Time: 16:14 kb 03/22 17:05 Order name: Vital Signs; Complete Time: 17:34 kb Administered Medications: 17:45 Drug: TORadol - Ketorolac 15 mg Route: IVP; Site: left antecubital; tr5 18:14 Follow up: Response: Pain is unchanged, physician notified tr5 18:33 Drug: morphine 4 mg {Note: RASS:0.} Route: IVP; Site: left antecubital; tr5 18:33 Drug: Zofran 4 mg Route: IVP; Site: left antecubital; tr5 Disposition: 03/23 07:23 Co-signature as Attending Physician, Helio Rosas MD I agree with the assessment and kdr plan of care. Disposition: 03/22/19 18:45 Discharged to Home. Impression: Irregular menstruation, unspecified, Low back pain. - Condition is Stable. - Discharge Instructions: Pelvic Mass, Uterine Fibroids, [id number], Abnormal Uterine Bleeding, [id number]. - Medication Reconciliation Form, Thank You Letter, Antibiotic Education, Prescription Opioid Use form. - Work release form (03/22/19 19:35). mg2 - Follow up: Emergency Department; When: As needed; Reason: Worsening of condition. Follow up: Private Physician; When: 2 - 3 days; Reason: Recheck today's complaints, Continuance of care, Re-evaluation by your physician. Signatures: Dispatcher [employer] EDCatarina Lynch, Twyla Chandler, RN RN sv Helio Rosas MD MD kdr Bret Warner RN RN tr5 Kayden Kang RN mg2 Corrections: (The following items were deleted from the chart) 03/22 19:22 18:45 03/22/2019 18:45 Discharged to Home. Impression: Irregular menstruation, tr5 unspecified; Low back pain. Condition is Stable. Forms are Medication Reconciliation Form, Thank You Letter, Antibiotic Education, Prescription Opioid Use. Follow up: Emergency Department; When: As needed; Reason: Worsening of condition. Follow up: Private Physician; When: 2 - 3 days; Reason: Recheck today's complaints, Continuance of care, Re-evaluation by your physician. kb
--- NOTE | 2019-03-22 19:26 | RAD REPORT ---
EXAM DESCRIPTION: US - Transvaginal Study Probe - 03/22/2019 5:34 pm CLINICAL HISTORY: Abdominal pain, pelvic and back pain, vaginal spotting COMPARISON: None. TECHNIQUE: Endovaginal sonography was performed. FINDINGS: The 2.5 centimeter anechoic right ovarian cyst is present. No abnormality of the ovarian s troma. Left ovary not clearly visualized. Bowel gas is limiting. No left adnexal abnormality seen. No blood or fluid in the cul de sac. Uterus is normal in size at 9.8 cm maximum dimension. No discrete endometrial mass or polyp. In the p osterior left fundus a 4.4 centimeter heterogeneous mass is present. A separate 2 centimeter hypoecho ic posterior uterine mass is seen. Both are believed to be fibroids. IMPRESSION: Uterine fibroids are present without discrete endometrial abnormality. A 2.5 centimeter right ovarian cyst is present. Left ovary is not clearly visualized due to bowel. No left adnexal mass seen.
[2019-03-22 20:10] VITALS: TEMP 98.3
[2019-03-22 20:12] VITALS: BP 157/80; O2SAT 99
== END 2019-03-22 19:22 | disposition home or self-care (01) ==
LOC: ER 15:31
DX: N92.6 Irregular menstruation, unspecified (principal); I10 Essential (primary) hypertension; Z91.048 Other nonmedicinal substance allergy status
CPT/HCPCS: 85025; 80048; 36415; 81025; 81003; 76830; 96375; 96374; 99284; J2405

== ENCOUNTER 2020-03-28 16:28 | Emergency (ER) | payer BC ==
--- OUTSIDE RECORDS SUMMARY | 2020-03-28 16:32 | XMS REPORT | Continuity of Care Document ---
:1980 Author Organization [facility] t Address [address] [place] [address] Care Team Providers Name Role Phone Asked, Pcp Primary Care Physician Unavailable Edilma MCGUIRE, THans Attending Clinician Jackie Godoy MD Attending Clinician Vielka ROSE Attending Clinician Payers Payer Name Policy Type Policy Effective Date Expiration Date Sour ce Number BCBSANTHEM GIFTY [id number] 2018 [place] [id number] 00:00:00 Methodis t 2018-Presclarice tPPO Problems Condition Condition Condition Status Onset Resolution Last Treating Co mments Source Name Details Category Date Date Treatment Clinician Date Genital Genital Problem Active [place] warts Warts 6-24 da 00:00: Medical 00 Group Family Family Problem Active [place] history of History of 6-23 da malignant Malignant 00:00: Medi florentin neoplasm Neoplasm 00 Group of breast of Breast in first in First degree Degree relative Relative Pelvic Pelvic Disease Active 2018-05 [place] pain pain 2-26 Methodi 00:00: st 00 Leiomyoma Leiomyoma Disease Active 2018-05 [address] ston of uterus of uterus 2-24 Meth neena 00:00: st 00 Hamartoma Hamartoma Problem Active [facility] 6-26 da 00:00: Medical 00 Group Mixed Mixed Problem Active [place]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 Anxiety 6-05 da and and 00:00: Medical depressive Depressive 00 Gr oup disorder Disorder Dysmenorrh Dysmenorrh Problem Active M levon ea ea 6-05 da 00:00: Medical 00 Group Premenstru Premenstru Problem Active M levon al al 605 da dysphoric Dysphoric 00:00: Medi florentin disorder Disorder 00 Group Menorrhagi Menorrhagi Problem Active M levon a a 6-05 da 00:00: Medical 00 Group Increased Increased Problem Active [place] frequency Frequency 6-05 da of of 00:00: Medical urination Urination 00 Grou p Allergies, Adverse Reactions, Alerts Allergy Allergy Status Severity Reaction(s) Onset Inactive Treating Comm ents Source Name Type Date Date Clinician Demerol Allergy Active Moderate Other [place] to da substanc Medical e Group Social History Social Habit Start Date Stop Date Quantity Comments Source History of Cigarette Smoker [place] [facility] tobacco use Sex Assigned At [facility] ethodist Tobacco use and 2019-04-25 2019-04-25 Never used [facility] ethodist exposure 00:00:00 00:00:00 Alcohol intake 2019-04-25 2019-04-25 Current drinker [facility] on [facility] 00:00:00 00:00:00 of alcohol (finding) Tobacco Comment 2019-04-22 2019-04-22 3 cigs/day [facility] ethodist 00:00:00 00:00:00 Alcohol Comment 2019-03-23 2019-03-23 socially [facility] ethodist 00:00:00 00:00:00 Smoking Status Start Date Stop Date Source Light Tobacco Smoker [facility] Current some day smoker 2019-04-25 00:00:00 [place] [facility] Medications Ordered Filled Start Stop Current Ordering Indication Dosage Frequency Signature Comments Components Source Medication Medication Date Date Medication? Clinician (SIG) Name Name metoprolol 2018-05 Yes 25mg Q.5D Take 25 mg [place] tartrate 2-26 by mouth 2 Metho di (LOPRESSOR) 13:27: (two) st 25 mg 28 times a tablet day. traMADol 2018-05 Yes acute pain 12.5mg Q6H Take 12.5 [place] (ULTRAM) 50 2-26 mg by [facility] mg tablet 13:27: mouth st 28 every 6 (six) hours as needed for moderate pain .Acute Pain. clonAZEPAM 2018-05 Yes .5mg QD Take 0.5 Dru ston (KlonoPIN) 2-26 mg by [facility] 0.5 MG 13:27: mouth st tablet 28 nightly. albuterol 2018-05 Yes as needed. Xavier landeros (PROAIR - [facility] HFA) 90 13:27: st mcg/actuati 28 on inhaler multivitami 2018-05 Yes 1{tbl} QD Take 1 Xavier landeros n with 2-26 tablet by [facility] minerals 13:27: mouth st tablet 28 daily. docusate 2018-05- No 100mg Q.5D Take 1 [place] sodium 06-26 capsule [facility] (COLACE) 00:00: 23:59 ([address] 100 MG 00 :00 total) by capsule mouth 2 (two) times a day as needed for constipati on for up to 30 days. ibuprofen 2018-05- No 600mg Q6H Take 1 [place] (ADVIL) 600 06-26 tablet Metho di MG tablet 00:00: 23:59 ([address] 00 :00 total) by mouth every 6 (six) hours as needed for mild pain for up to 30 days. acetaminoph 2018-05- No acute pain 1{tbl} Q6H Take 1 [place] en-codeine 06-26- tablet by Met thomas (TYLENOL 00:00: 23:[address] WITH 00 :00 every 6 CODEINE #3) (six) 300-30 mg hours as per tablet needed for moderate pain for up to 5 days .acute pain. DULoxetine 2018-05 Yes QD every [place] (CYMBALTA) 2-11 morning. Metho di 20 MG 00:00: st capsule 00 ondansetron 2018-05 2019- No 4mg Q6H Take 1 Dru ston (ZOFRAN) 4 05-23-26 tablet (4 Met hodi MG tablet 00:00: 00:00 mg total) st 00 :00 by mouth every 6 (six) hours for 30 days. acetaminoph 2018-05- No acute pain 1{tbl} Q6H Take 1-2 [place] en-codeine 05-23 11-30 tablets by Me zheng (TYLENOL 00:00: 23:[address] WITH 00 :00 every 6 CODEINE #3) (six) 300-30 mg hours as per tablet needed for moderate pain for up to 7 days .Acute Pain. clonazepam clonazepam No clonazepam [place] 1 mg tablet 1 mg tablet 1 mg d a tablet Medical Group duloxetine duloxetine No duloxetine [place] 20 mg 20 mg 20 mg da capsule,del capsule,del capsule,de Medical ayed ayed layed Group release release release metoprolol metoprolol No metoprolol [place] tartrate 25 tartrate 25 tartrate da mg tablet mg tablet 25 mg Medi florentin tablet Group Vital Signs Vital Name Observation Time Observation Value Comments Source BP Diastolic 2019-10-28 00:00:00 95 mm[Hg] [facility] Height 2019-10-28 00:00:00 61 [in_i] [facility] BMI (Body Mass 2019-10-28 00:00:00 23.6 kg/m2 [facility] Medical Index) Group BP Systolic 2019-10-28 00:00:00 136 mm[Hg] [facility] Body Weight 2019-10-28 00:00:00 124.7 [lb_av] [facility] BP Diastolic 2019-10-22 00:00:00 96 mm[Hg] [facility] Height 2019-10-22 00:00:00 61 [in_i] [facility] BMI (Body Mass 2019-10-22 00:00:00 23.4 kg/m2 [facility] Medical Index) Group BP Systolic 2019-10-22 00:00:00 129 mm[Hg] [facility] Body Weight 2019-10-22 00:00:00 124.1 [lb_av] [facility] Systolic blood 2019-04-25 07:25:06 119 mm[Hg] Sarah n [facility] pressure Diastolic blood 2019-04-25 07:25:06 65 mm[Hg] [place] [facility] pressure Heart rate 2019-04-25 07:25:06 63 /min Bharat Langston Body temperature 2019-04-25 07:25:06 36.17 Teri Jean neely [facility] Respiratory rate 2019-04-25 07:25:06 19 /min Jean Langston Oxygen saturation in 2019-04-25 07:25:06 100 /min Bharat Langston Arterial blood by Pulse oximetry Body height 2019-04-23 07:04:00 154.9 cm Bharat Langston Body weight 2019-04-23 07:04:00 54.658 kg Bharat Langston BMI 2019-04-23 07:04:00 22.77 kg/m2 Bharat Langston Procedures Procedure Date / Time Performing Clinician Source Performed BASIC METABOLIC PANEL 2019-04-24 05:15:00 Charis Meme Langston CBC HEMOGRAM 2019-04-24 05:15:00 Charis Meme A Bharat montes ESTIMATED GFR 2019-04-24 05:15:00 Manfred France SURGICAL PATHOLOGY 2019-04-23 13:06:00 Manfred France ethodist REQUEST ND AN PERIPHERAL BLOCK 2019-04-23 11:03:35 Yarelis Masters PROCEDURE FOR PAIN ND AN ELECTIVE 2019-04-23 09:24:31 Sherin Godoy ENDOTRACHEAL AIRWAY MYOMECTOMY, ABDOMINAL 2019-04-23 08:58:00 Manfred France APPROACH ECG PRE/POST OP 2019-04-22 13:23:33 Vielka Bharat Deisi ethodist Crystal CBC HEMOGRAM 2019-04-22 13:16:00 Manfred France BASIC METABOLIC PANEL 2019-04-22 13:16:00 Manfred France HCG QUALITATIVE, SERUM 2019-04-22 13:16:00 Manfred France SCREEN TYPE AND SCREEN 2019-04-22 13:16:00 Manfred France ESTIMATED GFR 2019-04-22 13:16:00 Manfred France Breast [facility] E[facility] Plan of Care Planned Activity Planned Date Details Comments Source Future Scheduled 2019-11-30 INFLUENZA VACCINE Sarah Langston Test 00:00:00 [code = INFLUENZA VACCINE] Future Scheduled 2000-11-18 Screening for Bharat Galvin thodist Test 00:00:00 malignant neoplasm of cervix (procedure) [code = 445620737] Encounters Start End Encounter Admission Attending Care Care Encounter Source Date/Time Date/Time Type Type Clinicians Facility Department ID 2019-10-28 2019-10-28 Rajendra RAOAngi [place] - [id number] [facility] 00:00:00 00:00:00 Discovery edis March MD: [address] [place] [phone] , Ph. [phone] 2019-10-22 2019-10-22 Rajendra MMG [place] - [id number] M [facility] 00:00:00 00:00:00 Discovery edis March MD: [address] [place] [phone] , Ph. [phone] Results Test Description Test Time Test Comments Results Result Comments Source Urinalysis macro (dipstick) panel - Urine 2019-10-22 14:03:5 3 Test Item Value Reference Range Interpretation Comme nts Leukocytes (test code = Leukocytes) Negative Nitrite (test code = Nitrite) negative Urobilinogen (test code = Urobilinogen) 1 Protein (test code = Protein) Negative pH (test code = pH) 6.0 Blood (test code = Blood) Negative Specific [place] (test code = Specific [place]) 1.030 Ketone (test code = Ketone) Small Bilirubin (test code = Bilirubin) Small Glucose (test code = Glucose) Negative Appearance (test code = Appearance) Clear Color (test code = Color) Yellow [facility] panel - [id number] 14:03:53 Test Item Value Reference Range Interpretation Comments Leukocytes (test code = Leukocytes) Negative Nitrite (test code = Nitrite) negative Urobilinogen (test code = 1 Urobilinogen) Protein (test code = Protein) Negative pH (test code = pH) 6.0 Blood (test code = Blood) Negative Specific [place] (test code = 1.030 Specific [place]) Ketone (test code = Ketone) Small Bilirubin (test code = Bilirubin) Small Glucose (test code = Glucose) Negative Appearance (test code = Appearance) Clear Color (test code = Color) Yellow [facility]achomat[facility]+Neisseria gonorrhoeae DNA [Presence] in Urine by LALITHA with probe [id number] 02:15:00 Test Item Value Reference Range Interpretation Comments Chlamydia sp Ag [Presence] in CT not detected Unspecified specimen (test code = 91688-9) [id number] (test code = qor4613) NG not detected [facility] [id number] 12:21:06 Test Item Value Reference Range Interpretation Comments Case number (test code = [id number]) Surgical pathology See link below for report (test code = PDF Lab Report [id number]) Result status (test code This is Final Report = [id number]) for [id number] [facility] [id number] 06:45:51 Test Item Value Reference Range Interpretation Comments WBC (test code = 07316-3) 14.01 4.50- 11.00 k/uL H RBC (test code = 65667-6) 3.46 m/uL 4.2-5.5 L HGB (test code = 718-7) 10.9 g/dL 12-16 L Resu lts double checked. HCT (test code = 4544-3) 35.2 % 37-47 L MCV (test code = 787-2) 101.7 fL 82-100 H MCH (test code = 785-6) 31.5 pg 27-34 MCHC (test code = 786-4) 31.0 g/dL 31-37 RDW - SD (test code = 47.3 fL 37-55 64806-3) MPV (test code = 75225-7) 11.0 fL 8.8-13.2 Platelet count (test code 209 150- 400 k/uL = 45158-9) Nucleated RBC (test code 0.00 /100 WBC = 98006-7) Lab Interpretation (test Abnormal code = 77249-9) [facility] metabolic [id number] 06:24:56 Test Item Value Reference Range Interpretation Comments Sodium (test code = 2951-2) 134 135- 148 mEq/L L Potassium (test code = 2823-3) 4.1 3.5- 5.0 mEq/L Chloride (test code = 2075-0) 102 98- 112 mEq/L CO2 (test code = 8-9) 23 24- 31 mEq/L L Anion gap (test code = 20731-5) 9@ANIO 7- 15 mEq/L BUN (test code = 3094-0) 13 mg/dL 6-20 Creatinine (test code = 2160-0) 0.57 mg/dL 0.5-0.9 Glucose (test code = 2345-7) 144 mg/dL 65-99 H Calcium (test code = 21713-6) 8.6 mg/dL 8.3-10.2 Lab Interpretation (test code = Abnormal 77791-9) Bharat MethodistEstimated [id number] 06:24:56 Test Item Value Reference Range Interpretation Comments Estimated GFR (test >=90 mL/min/1.73 m2 Naomy fish Units code = 5488) InterpretationG 1 >=90 Normal or highG2 60-89 Mildly akfqpbibuH6r 45-59 Mildly to mode rately otavtrvzgX8r 30-44 Moderately to severely decreasedG4 15-29 Severely decre asedG5 <15 Kidn ey failureThe eGFR was calculated mame g the Chronic Kidney Disease Epidemiology Co llaboration (CKD-EPI) equat ion. Interpretation is based on recommendations of the National Kidney Foundation-Kidn ey Disease Outcomes Qualit y Initiative (NKF-KDOQI) pub lished in 2014. [place] MethodistPeripheral [id number] 11:03:35Yarelis Masters MD 04/23/2019 11:04 AMPeripheral BlockDate/Time: 04/23/2019 11:04 AMPerformedby: Yarelis Masters, MDAuthorized by: Sherin Godoy MD Patient Location: OR (OR)Start Time: 04/23/2019 11:03 AMEnd Time: 04/23/2019 11:03 AMReason for Block: at surgeon's request, post-op pain management Staff: Anesthesiologist: Yarelis Masters MD Performed by: AnesthesiologistPreprocedure: patient identified, IV checked, site and side verified, risks and benefits discussed, procedure verified, surgical consent complete, patient position confirmed, monitors and equipment checked, pre-op evaluation complete and site marked Peripheral Nerve Block: Patient Position: Supine Prep: Betadine Monitoring: Blood pressure monitoring, continuous pulse oximetry, CO2 and heart rateBlock Type: TAPLaterality: BilateralInjection Technique: Single injectionProcedures: ultrasound guided Ultrasound documentation: StoredNeedle: Needle Type: PajunkAssessment: Injection Assessment:Intermittent aspiration during local anesthetic administration, no symptoms of intraneural/intravenous injection and needle tip visualized at all times during injection of medication Paresthesia Pain: None Heart Rate Change: No Slow Fractionated Injection: Yes Block outcome: No apparent complications and patient tolerated procedure wellMedications AdministeredBupivacaine 0.25 % PF (mL), 20 mLbupivacaine liposome (EXPAREL), 20 mLTexas [facility] Hospitalston [id number] 09:24:31Sherin Godoy MD 04/23/2019 9:25 AMAirwayPerformed by: Sherin Godoy MDAuthorized by: Sherin Godoy MD Location: ORUrgency: ElectiveDifficult Airway: No Preoxygenated with 100% O2: Yes C-spine Precautions Maintained Throughout: Yes Mask Ventilation: Easy maskFinal Airway Type: Endotracheal airwayFinal Endotracheal Airway: ETTCuffed: Yes Technique Used: Direct laryngoscopyDevices/Methods Used in Placement: Intubating styletInsertion Site: OralBlade Type: MillerLaryngoscope Blade/Videolaryngoscope Blade Size: 2ETT Size (mm): 7.0Cuff at minimum occlusion pressure: Yes Measured from: GumsPlacement Verified by: CO2 detection and direct visualization Laryngoscopic view: Grade I - full view of glottisRapid Sequence Induction (RSI): No Modified RSI: No Number of Attempts at Approach: 1[facility] centerflorinda LangstonECG Pre/Post [id number] 07:39:41 Test Item Value Reference Range Interpretation Comments Ventricular rate (test 67 code = 253) Atrial rate (test code = 67 255) ND interval (test code = 144 266) QRSD interval (test code 78 = 260) QT interval (test code = 432 264) QTC interval (test code 456 = 265) P axis 1 (test code = 74 267) QRS axis 1 (test code = 72 268) T wave axis (test code = 50 270) EKG impression (test Normal sinus code = 273) rhythm-Possible Left atrial enlargement-Borderlin e ECG-No previous ECGs available-Electronica lly Signed By Aldair Keane MD ([id number]) on 04/23/2019 7:39:40 AM [place] MethodistType and [id number] 17:58:00 Test Item Value Reference Range Interpretation Comments ABO grouping (test code = 883-9) O Rh type (test code = 09461-4) POS Antibody screen (gel) (test code = NEG 890-4) Bharat LangstonhCG qualitative, serum [id number] 15:36:22 Test Item Value Reference Range Interpretation Comments hCG qualitative, Negative Sensitivity of HCG test: serum (test code = 25 mIU/mL 8-8) Bharat Langston
--- OUTSIDE RECORDS SUMMARY | 2020-03-28 16:32 | XMS REPORT | Clinical Summary ---
:1980 Author Organization [facility] Address [address] [place] [address] Care Team Providers Name Role Phone Asked, Pcp Primary Care Provider Unavailable Allergies No Known Active Allergies Medications Medication Sig Dispensed Refills Start End Date Status Date metoprolol Take 25 mg by 0 Activ e tartrate mouth 2 (two) (LOPRESSOR) 25 mg times a day. tablet traMADol (ULTRAM) Take 12.5 mg by 0 Active 50 mg mouth every 6 tabletIndications (six) hours as : acute pain needed for moderate pain .Acute Pain. clonAZEPAM Take 0.5 mg by 0 Acti ve (KlonoPIN) 0.5 MG mouth nightly. tablet DULoxetine every morning. 0 Acti ve (CYMBALTA) 20 MG 9 capsule albuterol (PROAIR as needed. 0 A ctive HFA) 90 mcg/actuation inhaler multivitamin with Take 1 tablet by 0 Active minerals tablet mouth daily. acetaminophen-cod Take 1-2 tablets 30 tablet 0 03/30 eine (TYLENOL by mouth every 6 9 WITH CODEINE #3) (six) hours as 300-30 mg per needed for tabletIndications moderate pain : acute pain for up to 7 days .Acute Pain. ondansetron Take 1 tablet (4 120 tablet 0 04/25/20 Discontinued (ZOFRAN) 4 MG mg total) by 01 17 (St op Taking at tablet mouth every 6 Discha rge) (six) hours for 30 days. acetaminophen-cod Take 1 tablet by 20 tablet 0 04/30 eine (TYLENOL mouth every 6 9 19 WITH CODEINE #3) (six) hours as 300-30 mg per needed for tabletIndications moderate pain : acute pain for up to 5 days .acute pain. docusate sodium Take 1 capsule 60 capsule 0 05/25/19 (COLACE) 100 MG (100 mg total) 9 20 capsule by mouth 2 (two) times a day as needed for constipation for up to 30 days. ibuprofen (ADVIL) Take 1 tablet 40 tablet 0 05/25/19 600 MG tablet (600 mg total) 9 20 by mouth every 6 (six) hours as needed for mild pain for up to 30 days. Active Problems Problem Noted Date Pelvic pain 04/25/2019 Leiomyoma of uterus 04/23/2019 Encounters Date Type Specialty Care Team Description 04/23/2019 Anesthesia Event Obstetrics and Walt, Sherin Gynecology MD J[facility] Crystal marie NP 04/23/2019 Surgery Obstetrics and Manfred France ABDOMINAL Gynecology MD James MYOMECTOMY 04/23/2019 - Hospital Encounter General Internal Manfred France yoma of uterus; 04/25/2019 Medicine MD James Pelvic pain 04/22/2019 Pre-Admit Testing Pre-Admission Manfred France Pre-op te sting Appointment Testing MD James (Primary Dx) after 03/28/2019 Surgical History Surgery Date Site/Laterality Comments SALPINGECTOMY 10/29/2018 - for endometriosi s 11/28/2018 ADENOIDECTOMY 05/01/1993 - 04/30/1994 REDUCTION MAMMAPLASTY 05/01/2000 - Bilateral 04/30/2001 ANKLE FRACTURE SURGERY 05/01/1996 - Bilateral 04/30/1997 MYOMECTOMY, ABDOMINAL 04/23/2019 Abdomen/N/A Procedure: ABDOMINAL APPROACH MYOMECTOMY; Carlos geon: Manfred France MD; Location: [place] [address] OR; Service: Obstetr ics and Gynecology; Lat erality: N/A; Medical History Medical History Date Comments MVP (mitral valve prolapse) Hypertension Anxiety Palpitations on beta rk; las t episode 03/2019? Dr. Orosco(cardio) last s een 03/2019 Does not exercise no chest pain or sob on stairs Childhood asthma had some wheezing se veral months ago and was prescribed with inhaler but doesn't use it anymore Anxiety and depression Arthritis Leiomyoma of uterus Pelvic pain Chronic back pain lumbar bulging disc Abnormal bleeding in menstrual cycle Back problem back pains from bulg ing disc Mitral valve prolapse Social History Tobacco Use Types Packs/Day Years Used Date Current Some Day Smoker Cigarettes Smokeless Tobacco: Never Used Tobacco Cessation: Ready to Quit: No; Co unseling Given: Yes Comments: 3 cigs/day Alcohol Use Drinks/Week oz/Week Comments Yes socially Sex Assigned at Date Recorded Not on file Last Filed Vital Signs Vital Sign Reading Time Taken Comments Blood Pressure 119/65 04/25/2019 7:25 AM CARE MANAGEMENT ASSISTANT Pulse 63 04/25/2019 7:25 AM CARE MANAGEMENT ASSISTANT Temperature 36.2 C (97.1 F) 04/25/2019 7:25 AM CARE MANAGEMENT ASSISTANT Respiratory Rate 19 04/25/2019 7:25 AM CARE MANAGEMENT ASSISTANT Oxygen Saturation 100% 04/25/2019 7:25 AM CARE MANAGEMENT ASSISTANT Inhaled Oxygen Concentration - - Weight 54.7 kg (120 lb 8 oz) 04/23/2019 7:04 AM CARE MANAGEMENT ASSISTANT Height 154.9 cm (5' 1") 04/23/2019 7:04 AM CARE MANAGEMENT ASSISTANT Body Mass Index 22.77 04/23/2019 7:04 AM CARE MANAGEMENT ASSISTANT Plan of Treatment Health Maintenance Due Date Last Done Comments CERVICAL CANCER SCREENING 11/18/2000 INFLUENZA VACCINE 11/30/2019 Procedures Procedure Name Priority Date/Time Associated Comments Diagnosis ESTIMATED GFR Routine 04/24/2019 5:15 Results fo r this AM CARE MANAGEMENT ASSISTANT procedure are i n the results section. CBC HEMOGRAM Routine 04/24/2019 5:15 Results for this AM CARE MANAGEMENT ASSISTANT procedure are i n the results section. BASIC METABOLIC PANEL Routine 04/24/2019 5:15 Re sults for this AM CARE MANAGEMENT ASSISTANT procedure are i n the results section. SURGICAL PATHOLOGY Routine 04/23/2019 1:06 Resul ts for this REQUEST PM CARE MANAGEMENT ASSISTANT procedure are i n the results section. WV AN PERIPHERAL Routine 04/23/2019 11:03 Results for this BLOCK PROCEDURE FOR AM CARE MANAGEMENT ASSISTANT procedur e are in PAIN the results section. WV AN ELECTIVE Routine 04/23/2019 9:24 Results f or this ENDOTRACHEAL AIRWAY AM CARE MANAGEMENT ASSISTANT procedur e are in the results section. MYOMECTOMY, ABDOMINAL 04/23/2019 8:58 Leiomyoma of uterus APPROACH AM CARE MANAGEMENT ASSISTANT Pelvic pain Special Needs EST 90 MINS ECG PRE/POST OP Routine 04/22/2019 1:23 PM Pre-op testing Res ults for this CARE MANAGEMENT ASSISTANT procedure are i n the results section . ESTIMATED GFR Routine 04/22/2019 1:16 PM Results for this CARE MANAGEMENT ASSISTANT procedure are i n the results section . TYPE AND SCREEN Routine 04/22/2019 1:16 PM Pre-op testing Res ults for this CARE MANAGEMENT ASSISTANT procedure are i n the results section . HCG QUALITATIVE, Routine 04/22/2019 1:16 PM Pre-op testing Re sults for this SERUM SCREEN CARE MANAGEMENT ASSISTANT procedure are i n the results section . BASIC METABOLIC PANEL Routine 04/22/2019 1:16 PM Pre-op testi ng Results for this CARE MANAGEMENT ASSISTANT procedure are i n the results section . CBC HEMOGRAM Routine 04/22/2019 1:16 PM Pre-op testing Result s for this CARE MANAGEMENT ASSISTANT procedure are i n the results section . after 03/28/2019 Results Estimated GFR (04/24/2019 5:15 AM CARE MANAGEMENT ASSISTANT)Only the most recent of2 resultswithin the time period is included. Estimated GFR >=90 mL/min/1.73 [facility] Comment: m2 HOSPITAL Catergory Units Interpretation G1 >=90 Normal or high G2 60-89 Mildly decreased G3a 45-59 Mildly to moderately decreas ed G3b 30-44 Moderately to severely decre ased G4 15-29 Severely decreased G5 <15 Kidney failure The eGFR was calculated using the Chronic Kidney Disea se Epidemiology Collaboration (CKD-EPI) equation. Interpretation is based on recommendations of the National Kidney Foundation-Kidney Disease Outcomes Daren lity Initiative (NKF-KDOQI) published in 2014. Specimen Plasma specimen Performing Organization Address City/State/ZIP Code Phon e Number [facility] DEPARTMENT OF PATHOLOGY AND [address], [place] [phone] GENOMIC MEDICINE [facility] [address] [place] [address] CBC hemogram (04/24/2019 5:15 AM CARE MANAGEMENT ASSISTANT)Only the most recent of2 resultswithin the time period is included. WBC 14.01 (H) 4.50 - 11.00 [facility] RBC 3.46 (L) 4.20 - 5.50 [facility] HGB 10.9 (L)Comment: 12.0 - 16.0 [facility] Results double g/dL HOSPITAL checked. HCT 35.2 (L) 37.0 - 47.0 % [facility] MCV 101.7 (H) 82.0 - 100.0 fL [facility] MCH 31.5 27.0 - 34.0 pg [facility] MCHC 31.0 31.0 - 37.0 [facility] g/dL [facility] RDW - SD 47.3 37.0 - 55.0 fL [facility] MPV 11.0 8.8 - 13.2 fL [facility] Platelet count 209 150 - 400 k/uL [facility] Nucleated RBC 0.00 /100 WBC [facility] Specimen Blood Performing Organization Address [facility] Phon e Number [facility] DEPARTMENT OF PATHOLOGY AND [address] [place] [address] [phone] [address] Basic metabolic panel (04/24/2019 5:15 AM CARE MANAGEMENT ASSISTANT)Only the most recent of2 results within the time period is included. Pathologist Sig nature Sodium 134 (L) 135 - 148 mEq/L [facility] L Potassium 4.1 3.5 - 5.0 mEq/L [facility] L Chloride 102 98 - 112 mEq/L [facility] CO2 23 (L) 24 - 31 mEq/L [facility] Anion gap 9@ANIO 7 - 15 mEq/L [facility] BUN 13 6 - 20 mg/dL [facility] Creatinine 0.57 0.50 - 0.90 mg/dL [facility] Glucose 144 (H) 65 - 99 mg/dL [facility] Calcium 8.6 8.3 - 10.2 mg/dL [facility] Specimen Plasma specimen Performing Organization Address City/[facility] Phon e Number [facility] DEPARTMENT OF PATHOLOGY AND [address], [place] [phone] [address] Surgical pathology request (04/23/2019 1:06 PM CARE MANAGEMENT ASSISTANT) [facility] DEPARTMENT OF PATHOLOGY AND GENOMIC MEDICINE Surgical pathology See link below [facility] DEPARTMENT OF report for PDF Lab PATHOLOGY AND Report GENOMIC MEDICINE Result status This is Final [facility] DEPARTMENT OF Report for PATHOLOGY AND [id number] GENOMIC MEDICINE Specimen Performing Organization Address City/[facility] Phon e Number [facility] DEPARTMENT OF PATHOLOGY AND [facility] [place] [address] [facility] Peripheral Block (04/23/2019 11:03 AM CARE MANAGEMENT ASSISTANT) Narrative Performed At Yarelis Masters MD 04/23/2019 1 1:04 AM Peripheral Block Date/Time: 04/23/2019 11:04 AM Performed by: Yarelis Masters MD Authorized by: Sherin Godoy MD Patient Location: OR (OR) Start Time: 04/23/2019 11:03 AM End Time: 04/23/2019 11:03 AM Reason for Block: at surgeon's request, post-op pain management Staff: Anesthesiologist: Yarelis Masters MD Performed by: Anesthesiologist Preprocedure: patient identified, IV mor cked, site and side verified, risks and benefits discussed, procedure verified, surgical consent complete, patient position confirmed, mo nitors and equipment checked, pre-op evaluation complete and site myriam ed Peripheral Nerve Block: Patient Position: Supine Prep: Betadine Monitoring: Blood pressure monitoring, continuous pulse oximetry, CO2 and heart rate Block Type: TAP Laterality: Bilateral Injection Technique: Single injection Procedures: ultrasound guided Ultrasound documentation: Stored Needle: Needle Type: Pajunk Assessment: Injection Assessment: Intermittent aspiration dur ing local anesthetic administration, no symptoms of intraneur al/intravenous injection and needle tip visualized at all times durin g injection of medication Paresthesia Pain: None Heart Rate Change: No Slow Fractionated Injection: Yes Block outcome: No apparent complica tions and patient tolerated procedure well Medications Administered Bupivacaine 0.25 % PF (mL), 20 mL bupivacaine liposome (EXPAREL), 20 mL Airway (04/23/2019 9:24 AM CARE MANAGEMENT ASSISTANT) Narrative Performed At Sherin Godoy MD 04/23/2019 9: 25 AM Airway Performed by: Sherin Godoy MD Authorized by: Sherin Godoy MD Location: OR Urgency: Elective Difficult Airway: No Preoxygenated with 100% O2: Yes C-spine Precautions Maintained Throughou t: Yes Mask Ventilation: Easy mask Final Airway Type: Endotracheal airway Final Endotracheal Airway: ETT Cuffed: Yes Technique Used: Direct laryngoscopy Devices/Methods Used in Placement: Int ubating stylet Insertion Site: Oral Blade Type: Webber Laryngoscope Blade/Videolaryngoscope Floyd de Size: 2 ETT Size (mm): 7.0 Cuff at minimum occlusion pressure: Yes Measured from: Gums Placement Verified by: CO2 detection and direct visualization Laryngoscopic view: Grade I - full vie w of glottis Rapid Sequence Induction (RSI): No Modified RSI: No Number of Attempts at Approach: 1 ECG Pre/Post Op (04/22/2019 1:23 PM CARE MANAGEMENT ASSISTANT) Pathologist Sig nature Ventricular rate 67 [facility] Atrial rate 67 [facility] WV interval 144 [facility] QRSD interval 78 [facility] QT interval 432 [facility] QTC interval 456 [facility] P axis 1 74 [facility] QRS axis 1 72 [facility] T wave axis 50 [facility] EKG impression Normal sinus [facility] rhythm-Possible Left atrial enlargement-Borderline ECG-No previous ECGs available-Electronicall y Signed By Diya MCGUIRE, Aldair Coleman ([id number]) on 04/23/2019 7:39:40 AM Specimen Narrative Performed At This result has an attachment that is no t available. Performing Organization Address City/[facility]/ZIP Code Phon e Number [facility] MUSE [address] [place] [id number] Type and screen (04/22/2019 1:16 PM CARE MANAGEMENT ASSISTANT) Pathologist Sig nature ABO grouping O [facility] Rh type POS [facility] Antibody screen (gel) NEG [facility] Specimen Blood Performing Organization Address City/[facility] Phon e Number [facility] DEPARTMENT OF PATHOLOGY AND [address] [place] [address] [phone] [address] hCG qualitative, serum screen (04/22/2019 1:16 PM CARE MANAGEMENT ASSISTANT) hCG qualitative, NegativeComment: [facility] serum Sensitivity of HCG HOSPITAL test: 25 mIU/mL Specimen Blood Performing Organization Address City/State/ZIP [facility] Phon e Number [facility] DEPARTMENT OF PATHOLOGY AND [address] [place] [address] [phone] [address] after 03/28/2019 [phone] (Work) Advance Directives For more information, please contact: [phone] Type Date Recorded 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
[2020-03-28 17:02] LABS: Urine Blood NEGATIVE (NEG); Urine Glucose NEGATIVE (NEG); Urine Protein NEGATIVE (NEG); Urine pH 6.5 (5.0-7.0)
[2020-03-28] MEDS ORDERED: KETOROLAC 30 MG/ML INJ ONE (17:14)
[2020-03-28] MEDS ORDERED: SIMETHICONE 80 MG TAB ONE (17:14)
[2020-03-28 17:25] LABS: Urine Bacteria 20-50 /HPF (<20); Urine Mucus SLIGHT /HPF (NONE SEEN); Urine RBC NONE SEEN /HPF (NONE SEEN)
[2020-03-28 17:43] LABS: ALT/SGPT 26 U/L (12-78); AST/SGOT 18 U/L (15-37); Albumin 4.2 g/dL (3.4-5.0); Alkaline Phosphatase 71 U/L (45-117); BUN Blood Urea Nitrogen 19 mg/dL (7-18); Bicarbonate 26 mmol/L (21-32); Bilirubin Direct < 0.1 mg/dL (0-0.2); Bilirubin Total 0.3 mg/dL (0.2-1.0); Glucose Level 88 mg/dL (74-106); Lipase 126 U/L (73-393); Potassium 3.7 mmol/L (3.5-5.1); Protein, Total 8.4 g/dL (6.4-8.2); Sodium Level 139 mmol/L (136-145)
[2020-03-28 17:46] LABS: Absolute Lymphocytes (CBC) 2.9 K/uL (0.7-4.9); Basophils % 0.8 % (0-1.3); Hematocrit 44.4 % (36.0-45.0); Lymphocytes % 35.6 % (15.3-44.8); MPV 9.8 fL (7.6-11.3); RBC Red Blood Cell Count 4.78 M/uL (3.86-4.86)
[2020-03-28] MEDS ORDERED: CEFTRIAXONE/SWI 1gm 1 GM/10 ML SYR ONE (18:07)
[2020-03-28] MEDS ORDERED: LORazepam 2 MG/ML VIAL ONE (19:14)
--- NOTE | 2020-03-28 19:27 | RAD REPORT ---
EXAM DESCRIPTION: CT - Stone Protocol - 03/28/2020 7:11 pm CLINICAL HISTORY: Flank pain. DISTENTION COMPARISON: Abdomen Pelvis W Contrast dated 09/17/2017 TECHNIQUE: Axial images were obtained without oral or IV contrast. Lack of contrast limits solid org an and vascular assessment. The [id number] spans the entirety of the system partially obscuring uppermost abdomen and lung bases. Coronal reformatted images were obtained and reviewed. All CT scans are performed using dose optimization technique as appropriate and may include automated exposure control or mA/KV adjustment according to patient size. FINDINGS: The lower lung ashley are clear. Imaged portions of the liver and spleen show no suspicious findings on non-contrast imaging. The panc reas and adrenal glands are normal. No pathologic lymphadenopathy in the abdomen or pelvis. No urinary tract stones or obstructive uropathy. No bowel obstruction, free air, free fluid or abscess. Normal appendix noted. No significant bony abnormality. IMPRESSION: No urinary tract stones or obstructive uropathy.
--- NOTE | 2020-03-28 19:29 | ER ---
Nurse's Notes [facility] Name: Feli Espinoza Age: 39 yrs Sex: Female : 1980 Arrival Date: 03/28/2020 Time: 16:30 Bed 8 Private MD: Diagnosis: Generalized abdominal pain;Urinary tract infection, site not specified Presentation: 03/28 16:40 Chief complaint: Right flank pain and abdominal bloating, unrelieved by laxatives x 1 hb week. Denies N/V. Coronavirus screen: At this time, the client does not indicate any symptoms associated with coronavirus-19. Ebola Screen: No symptoms or risks identified at this time. Initial Sepsis Screen: Does the patient meet any 2 criteria? No. Patient's initial sepsis screen is negative. Does the patient have a suspected source of infection? No. Patient's initial sepsis screen is negative. Risk Assessment: Do you want to hurt yourself or someone else? Patient reports no desire to harm self or others. Onset of symptoms was March 21, 2020. 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 - Social history:: Smoking status: Patient denies any tobacco usage or history of. Screenin:47 Abuse screen: Denies threats or abuse. Nutritional screening: No deficits noted. tw2 Tuberculosis screening: No symptoms or risk factors identified. Fall Risk None identified. Assessment: 17:00 General: Appears in no apparent distress. uncomfortable, Behavior is cooperative, jl7 appropriate for age, anxious. Pain: Complains of pain in right low back Pain currently is 6 out of 10 on a pain scale. Neuro: Level of Consciousness is awake, alert, obeys commands, Oriented to person, place, time, situation. Cardiovascular: Patient's skin is warm and dry. Respiratory: Airway is patent Respiratory effort is even, unlabored, Respiratory pattern is regular, symmetrical. GI: Reports bloating, Patient currently denies diarrhea, flatulence, nausea, vomiting. : Reports urinary frequency. Derm: Skin is pink, warm \T\ dry. 18:00 Reassessment: Patient appears in no apparent distress at this time. No changes from jl7 previously documented assessment. Patient and/or family updated on plan of care and expected duration. Pain level reassessed. Patient is alert, oriented x 3, equal unlabored respirations, skin warm/dry/pink. 19:00 Reassessment: Pt reports having intermittent right subscapular pain x 4 days, worsening jl7 with inspiration, ERP notified, see MAR for orders. 19:20 Reassessment: Patient and/or family updated on plan of care and expected duration. Pain ll2 level reassessed. Patient is alert, oriented x 3, equal unlabored respirations, skin warm/dry/pink. Vital Signs: 16:40 BP 151 / 101; Pulse 89; Resp 16; Temp 98.3; Pulse Ox 100% on R/A; Pain 6/10; hb 18:00 BP 131 / 87; Pulse 77; Resp 17; Pulse Ox 100% on R/A; tw2 ED Course: 16:30 Patient arrived in ED. as 16:34 Bed in low position. Call light in reach. Pulse ox on. NIBP on. tw2 16:38 Christin Valadez FNP-C is PHCP. snw 16:38 Wilfrido Christy MD is Attending Physician. snw 16:42 Triage completed. hb 16:42 Arm band placed on. hb 16:44 Joesph Collins, BONG is Primary Nurse. 7 16:50 Urine Culture Sent. [facility] 16:50 Urine Microscopic Only Sent. [facility] 16:50 Urine collected: clean catch specimen, cloudy. 7 17:00 Initial lab(s) drawn, by nv, sent to lab. Inserted saline lock: 20 gauge in left jl7 antecubital area, using aseptic technique. Blood collected. 17:30 COVID swab sent to lab. jl7 19:11 CT Stone Protocol In Process Unspecified. EDMS 19:24 Primary Nurse role handed off by Joesph Collins, BONG [facility] 20:31 Yessica Hale, BONG is Primary Nurse. ll2 Administered Medications: 17:00 Drug: Simethicone 240 mg Route: PO; [facility] 18:00 Follow up: Response: No adverse reaction; No change in condition 7 17:10 Drug: TORadol 30 mg Route: IVP; Site: left antecubital; jl7 18:00 Follow up: Response: No adverse reaction; Pain is unchanged, physician notified jl7 18:10 Drug: Rocephin 1 grams Route: IV; Rate: calculated rate; Site: left antecubital; jl7 18:13 Follow up: Response: No adverse reaction; IV Status: Completed infusion jl7 19:02 Drug: Ativan 1 mg Route: IVP; Site: left antecubital; jl7 20:00 Follow up: Response: No adverse reaction ll2 19:03 Drug: NS 0.9% 1000 ml Route: IV; Rate: 1 bolus; Site: left antecubital; jl7 20:00 Follow up: Response: No adverse reaction; IV Status: Completed infusion; IV Intake: ll2 1000ml 19:03 Drug: Bentyl 20 mg Route: PO; jl7 20:00 Follow up: Response: No adverse reaction ll2 20:33 Drug: fentaNYL (PF) 25 mcg Route: IVP; Site: left antecubital; ll2 20:34 Follow up: Response: Medication administered at discharge.; RASS: Alert and Calm (0) ll2 Intake: 20:00 IV: 1000ml; Total: 1000ml. ll2 Outcome: 19:29 Discharge ordered by . snw 20:35 Patient left the ED. ll2 Addendum: 04/01/2020 17:08 Addendum: COVID-19 Result: Negative result given to RN to notify pt. Notified pt of a a5 negative COVID 19 swab results. Pt advised that even with a negative test result they should remain in isolation until symptom free for 3 days without medication. Pt also advised to return to the ED for worsening symptoms. Signatures: Dispatcher [employer] EDMS Christin Valadez FNP-C PHOTOENGRAVING SKETCH MAKER-Shona Salinas Audri RN RN aa5 Feli Ag RN RN Miroslava Sherwood RN RN 2 Lily Marquez 5 Joesph Collins RN RN jl7 Yessica Hale RN RN ll2 Corrections: (The following items were deleted from the chart) 03/28 20:35 16:42 Allergies: adhesive tape; hb ll2 20:35 16:42 PMHx: Anxiety; hb ll2 20:35 16:42 PMHx: Hypertension; hb ll2 20:35 16:42 PMHx: mitral valve prolapse; hb ll2 20:35 16:42 PMHx: MVP; hb ll2
--- NOTE | 2020-03-28 19:30 | EDPHYS ---
Physician Documentation [facility] Name: Feli Espinoza Age: 39 yrs Sex: Female : 1980 Arrival Date: 03/28/2020 Time: 16:30 Bed 8 Private MD: ED Physician Wilfrido Christy HPI: 03/28 17:47 This 39 yrs old Female presents to ER via Ambulatory with complaints of snw Abdominal Swelling, Dizziness, Back Pain. 17:47 The patient presents with abdominal pain in the right upper quadrant, right flank. snw Onset: The symptoms/episode began/occurred gradually, 4 day(s) ago, and became persistent. The symptoms do not radiate. Associated signs and symptoms: Pertinent positives: frequency, back pain. The symptoms are described as crampy. Severity of pain: At its worst the pain was moderate. The patient has not experienced similar symptoms in the past. The patient has not recently seen a physician. pt also states she feels fatigued, occasionally dizzy. 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 - Social history:: Smoking status: Patient denies any tobacco usage or history of. ROS: 16:55 Constitutional: Negative for fever, chills, and weight loss, + extreme fatigue Eyes: snw Negative for injury, pain, redness, and discharge, ENT: Negative for injury, pain, and discharge, Neck: Negative for injury, pain, and swelling, Cardiovascular: Negative for chest pain, palpitations, and edema, Respiratory: Negative for shortness of breath, cough, wheezing, and pleuritic chest pain. 16:55 : Negative for injury, bleeding, discharge, and swelling, MS/Extremity: Negative for injury and deformity, Skin: Negative for injury, rash, and discoloration, Neuro: Negative for headache, weakness, numbness, tingling, and seizure, Psych: Negative for depression, anxiety, suicide ideation, homicidal ideation, and hallucinations. 16:55 Abdomen/GI: Positive for abdominal pain, nausea, bloating. 16:55 Back: Positive for chronic right sided back pain. Exam: 16:54 Constitutional: This is a well developed, well nourished patient who is awake, alert, snw and in no acute distress. Head/Face: Normocephalic, atraumatic. Eyes: Pupils equal round and reactive to light, extra-ocular motions intact. Lids and lashes normal. Conjunctiva and sclera are non-icteric and not injected. Cornea within normal limits. Periorbital areas with no swelling, redness, or edema. ENT: Nares patent. No nasal discharge, no septal abnormalities noted. Tympanic membranes are normal and external auditory canals are clear. Oropharynx with no redness, swelling, or masses, exudates, or evidence of obstruction, uvula midline. Mucous membranes moist. Neck: Trachea midline, no thyromegaly or masses palpated, and no cervical lymphadenopathy. Supple, full range of motion without nuchal rigidity, or vertebral point tenderness. No Meningismus. Chest/axilla: Normal chest wall appearance and motion. Nontender with no deformity. No lesions are appreciated. Cardiovascular: Regular rate and rhythm with a normal S1 and S2. No gallops, murmurs, or rubs. Normal PMI, no JVD. No pulse deficits. Respiratory: Lungs have equal breath sounds bilaterally, clear to auscultation and percussion. No rales, rhonchi or wheezes noted. No increased work of breathing, no retractions or nasal flaring. Abdomen/GI: Soft, generalized tenderness, with normal bowel sounds. Mild distension, no tympany. No guarding or rebound. No evidence of tenderness throughout. Back: No spinal tenderness. No costovertebral tenderness. Full range of motion. Skin: Warm, dry with normal turgor. Normal color with no rashes, no lesions, and no evidence of cellulitis. MS/ Extremity: Pulses equal, no cyanosis. Neurovascular intact. Full, normal range of motion. Neuro: Awake and alert, GCS 15, oriented to person, place, time, and situation. Cranial nerves II-XII grossly intact. Motor strength 5/5 in all extremities. Sensory grossly intact. Cerebellar exam normal. Normal gait. Psych: Awake, alert, with orientation to person, place and time. Behavior, mood, and affect are within normal limits. Vital Signs: 16:40 BP 151 / 101; Pulse 89; Resp 16; Temp 98.3; Pulse Ox 100% on R/A; Pain 6/10; hb 18:00 BP 131 / 87; Pulse 77; Resp 17; Pulse Ox 100% on R/A; tw2 MDM: 16:54 Patient medically screened. snw 19:30 Data reviewed: vital signs, nurses notes, lab test result(s), radiologic studies. Data snw interpreted: Pulse oximetry: on room air is 100 %. Counseling: I had a detailed discussion with the patient and/or guardian regarding: the historical points, exam findings, and any diagnostic results supporting the discharge/admit diagnosis, the presence of at least one elevated blood pressure reading (>120/80) during this emergency department visit, lab results, radiology results, to return to the emergency department if symptoms worsen or persist or if there are any questions or concerns that arise at home. Special discussion: Based on the history and exam findings, there is no indication for further emergent testing or inpatient evaluation. I discussed with the patient/guardian the need to see the primary care provider for further evaluation of the symptoms. 03/28 16:39 Order name: Basic Metabolic Panel; Complete Time: 17:45 snw 03/28 16:39 Order name: CBC with Diff; Complete Time: 17:50 snw 03/28 16:39 Order name: Hepatic Function; Complete Time: 17:45 snw 03/28 16:39 Order name: Lipase; Complete Time: 17:45 snw 03/28 16:39 Order name: Urine Culture snw 03/28 16:39 Order name: Urine Microscopic Only; Complete Time: 17:45 snw 03/28 16:52 Order name: Urine Dipstick--Ancillary (enter results); Complete Time: 17:45 eb 03/28 16:52 Order name: Urine --Ancillary (enter results); Complete Time: 17:45 eb 03/28 16:53 Order name: COVID-19 snw 03/28 17:28 Order name: Glucose, Ancillary Testing; Complete Time: 17:45 EDMS 03/28 18:10 Order name: CT Stone Protocol; Complete Time: 19:27 snw 03/28 16:39 Order name: IV Saline Lock; Complete Time: 17:48 snw 03/28 16:39 Order name: Labs collected and sent; Complete Time: 17:48 snw 03/28 16:39 Order name: Urine Test (obtain specimen); Complete Time: 16:50 snw 03/28 16:39 Order name: Urine Dipstick-Ancillary (obtain specimen); Complete Time: 16:50 snw Administered Medications: 17:00 Drug: Simethicone 240 mg Route: PO; 7 18:00 Follow up: Response: No adverse reaction; No change in condition 7 17:10 Drug: TORadol 30 mg Route: IVP; Site: left antecubital; jl7 18:00 Follow up: Response: No adverse reaction; Pain is unchanged, physician notified 7 18:10 Drug: Rocephin 1 grams Route: IV; Rate: calculated rate; Site: left antecubital; jl7 18:13 Follow up: Response: No adverse reaction; IV Status: Completed infusion jl7 19:02 Drug: Ativan 1 mg Route: IVP; Site: left antecubital; jl7 20:00 Follow up: Response: No adverse reaction ll2 19:03 Drug: NS 0.9% 1000 ml Route: IV; Rate: 1 bolus; Site: left antecubital; 7 20:00 Follow up: Response: No adverse reaction; IV Status: Completed infusion; IV Intake: ll2 1000ml 19:03 Drug: Bentyl 20 mg Route: PO; 7 20:00 Follow up: Response: No adverse reaction ll2 20:33 Drug: fentaNYL (PF) 25 mcg Route: IVP; Site: left antecubital; 2 20:34 Follow up: Response: Medication administered at discharge.; RASS: Alert and Calm (0) ll2 Disposition: 03/29 07:13 Co-signature as Attending Physician, Wilfrido Christy MD. rn Disposition: 03/28/20 19:29 Discharged to Home. Impression: Generalized abdominal pain, Urinary tract infection, site not specified. - Condition is Stable. - Discharge Instructions: Abdominal Pain, Adult, Back Pain, Adult, Urinary Tract Infection, Adult, Fatigue, Rehydration, Adult, [place] Diet. - Prescriptions for Augmentin 875- 125 mg Oral Tablet - take 1 tablet by ORAL route every 12 hours for 10 days; 20 tablet. promethazine 25 mg Oral Tablet - take 1 tablet by ORAL route every 6 hours As needed; 20 tablet. - Work release form, Medication Reconciliation Form, Thank You Letter, Antibiotic Education, Prescription Opioid Use form. - Follow up: Emergency Department; When: As needed; Reason: Worsening of condition. Follow up: Private Physician; When: 2 - 3 days; Reason: Recheck today's complaints, Continuance of care, Re-evaluation by your physician. Signatures: Dispatcher [employer] EDChristin Morillo, ADILSON-C PIPE CLEANING MACHINE OPERATOR-Csnw Wilfrido Christy MD MD rn Baxter, Heather RN RN Joesph Blankenship RN RN jl7 Yessica Hale RN RN ll2 Corrections: (The following items were deleted from the chart) 03/28 20:35 16:42 Allergies: adhesive tape; hb ll2 20:35 16:42 PMHx: Anxiety; hb ll2 20:35 16:42 PMHx: Hypertension; hb ll2 20:35 16:42 PMHx: mitral valve prolapse; hb ll2 20:35 16:42 PMHx: MVP; hb ll2 20:35 19:29 03/28/2020 19:29 Discharged to Home. Impression: Generalized abdominal pain; ll2 Urinary tract infection, site not specified. Condition is Stable. Forms are Medication Reconciliation Form, Thank You Letter, Antibiotic Education, Prescription Opioid Use. Follow up: Emergency Department; When: As needed; Reason: Worsening of condition. Follow up: Private Physician; When: 2 - 3 days; Reason: Recheck today's complaints, Continuance of care, Re-evaluation by your physician. snw
[2020-03-28] MEDS ORDERED: FENTANYL CITR 100 MCG/2 ML ONE (20:31)
[2020-03-28 23:47] VITALS: TEMP 98.3; O2SAT 100
[2020-03-28 23:48] VITALS: BP 131/87
== END 2020-03-28 20:35 | disposition home or self-care (01) ==
LOC: ER 16:28
DX: N39.0 Urinary tract infection, site not specified (principal); Z20.828 Contact with and (suspected) exposure to other viral communicable diseases; I10 Essential (primary) hypertension; Z91.048 Other nonmedicinal substance allergy status
CPT/HCPCS: 96361; 87088; 85025; 87086; 80048; 36415; 81025; 82947; 80076; 83690; 76377; 74176; 96375; 96374; 99284; U0002; J3010; J0696; 81003; 81015

== ENCOUNTER 2021-11-28 11:45 | Emergency (ER) | payer BC ==
[2021-11-28] MEDS ORDERED: LORazepam 2 MG/ML VIAL ONE (12:53)
[2021-11-28 12:58] LABS: Potassium 3.7 mmol/L (3.5-5.1)
--- NOTE | 2021-11-28 12:59 | RAD REPORT ---
EXAM DESCRIPTION: RAD - Chest Single View - 11/28/2021 12:51 pm CLINICAL HISTORY: DYSPNEA COMPARISON: Chest Pa And Lat (2 Views) dated 07/21/2021; Chest Single View dated 09/17/2017 FINDINGS: Lines: None. Lungs: No evidence of edema or pneumonia. Pleural: No significant pleural effusions or pneumothorax. Cardiac: The heart size is within normal limits. Bones: No acute fractures. Other: IMPRESSION: No acute cardiopulmonary disease.
[2021-11-28 13:05] LABS: Absolute Lymphocytes (CBC) 1.5 K/uL (0.7-4.9); Hematocrit 38.2 % (36.0-45.0); Lymphocytes % 42.2 % (15.3-44.8); MCV 92.5 fL (80-100); RBC Red Blood Cell Count 4.13 M/uL (3.86-4.86)
--- NOTE | 2021-11-28 13:31 | EDPHYS ---
Physician Documentation [facility] Name: Feli Espinoza Age: 41 yrs Sex: Female : 1980 Arrival Date: 11/28/2021 Time: 11:49 Bed 13 Private MD: ED Physician Twyla Alvarez HPI: 11/28 12:00 This 41 yrs old Female presents to ER via Ambulatory with complaints of Covid+, jh7 Breathing Difficulty, Breast Problem. 12:00 Patient was diagnosed with COVID on Monday at [facility]. She states that her jh7 only symptom now is some mild shortness of breath, but reports that it may be due to anxiety. Reports that her mother was diagnosed with stage IV breast cancer recently. Since then she has had some mild breast aching and an intermittent rash over both breast. States that she has a lot of stressors and that her anxiety has increased. States that she has been taking lorazepam as needed.. 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 - Social history:: Smoking status: Patient reports the use of cigarette tobacco products, denies chronic smoking, but will smoke occasionally. ROS: 12:00 Constitutional: Negative for fever, chills, and weight loss, Eyes: Negative for injury, jh7 pain, redness, and discharge, ENT: Negative for injury, pain, and discharge, Neck: Negative for injury, pain, and swelling, Cardiovascular: Negative for chest pain, palpitations, and edema, Respiratory: Negative for shortness of breath, cough, wheezing, and pleuritic chest pain, Abdomen/GI: Negative for abdominal pain, nausea, vomiting, diarrhea, and constipation, : Negative for injury, bleeding, discharge, and swelling. 12:00 Neuro: Negative for headache, weakness, numbness, tingling, and seizure. 12:00 Respiratory: Positive for shortness of breath, Negative for cough, wheezing. 12:00 Skin: Positive for rash. 12:00 All other systems are negative. Exam: 12:00 Head/Face: Normocephalic, atraumatic. Eyes: Pupils equal round and reactive to light, jh7 extra-ocular motions intact. Lids and lashes normal. Conjunctiva and sclera are non-icteric and not injected. Cornea within normal limits. Periorbital areas with no swelling, redness, or edema. Neck: Trachea midline, no thyromegaly or masses palpated, and no cervical lymphadenopathy. Supple, full range of motion without nuchal rigidity, or vertebral point tenderness. No Meningismus. Cardiovascular: Regular rate and rhythm with a normal S1 and S2. No gallops, murmurs, or rubs. Normal PMI, no JVD. No pulse deficits. Respiratory: Lungs have equal breath sounds bilaterally, clear to auscultation and percussion. No rales, rhonchi or wheezes noted. No increased work of breathing, no retractions or nasal flaring. Abdomen/GI: Soft, non-tender, with normal bowel sounds. No distension or tympany. No guarding or rebound. No evidence of tenderness throughout. Back: No spinal tenderness. No costovertebral tenderness. Full range of motion. Skin: Warm, dry with normal turgor. Normal color with no rashes, no lesions, and no evidence of cellulitis. MS/ Extremity: Pulses equal, no cyanosis. Neurovascular intact. Full, normal range of motion. Neuro: Awake and alert, GCS 15, oriented to person, place, time, and situation. Sensory grossly intact. Normal gait. 12:00 Constitutional: The patient appears anxious, Crying 12:00 Chest/axilla: Breasts: rash, that is mild in both breasts, Mild petechial rash noted on the inferior portion of bilateral breast. No masses palpated, induration, erythema, drainage, or tenderness to palpation.. Vital Signs: 11:57 BP 172 / 121; Pulse 86; Resp 20; Temp 98.7; Pulse Ox 100% ; Weight 58.97 kg; Height 5 ll1 ft. 1 in. (154.94 cm); Pain 5/10; 13:00 BP 124 / 89; Pulse 78; Resp 20; Pulse Ox 100% on R/A; em6 13:54 BP 119 / 100; Pulse 72; Resp 16; Pulse Ox 100% on R/A; Pain 0/10; em6 11:57 Body Mass Index 24.56 (58.97 kg, 154.94 cm) ll1 MDM: 11:52 Patient medically screened. [facility] 13:30 Differential diagnosis: viral Infection, bronchitis, pneumonia. Data reviewed: vital [facility] signs, nurses notes, radiologic studies, plain films. Data interpreted: Pulse oximetry: is 100 %. Interpretation: normal. Counseling: I had a detailed discussion with the patient and/or guardian regarding: the historical points, exam findings, and any diagnostic results supporting the discharge/admit diagnosis, the need for outpatient follow up, an OB/Gyne specialist, to return to the emergency department if symptoms worsen or persist or if there are any questions or concerns that arise at home. ED course: Strongly advised the patient to follow-up with an JUNIOR BUYER for a mammogram due to patient concern and family history of breast cancer. The patient felt much better at discharge and a referral for free clinic was provided to the patient.. 11/28 12:10 Order name: CBC with Diff; Complete Time: 13:23 [facility] 11/28 12:10 Order name: BMP; Complete Time: 13:23 [facility] 11/28 12:08 Order name: Chest Single View XRAY; Complete Time: 13:23 [facility] Administered Medications: 12:40 Drug: Ativan (LORazepam) 1 mg Route: IVP; Site: left antecubital; em6 Disposition Summary: 11/28/21 13:30 Discharge Ordered Location: Home [facility] Problem: new [facility] Symptoms: have improved [facility] Condition: Stable [facility] Diagnosis - Coronavirus infection, unspecified [facility] - Generalized anxiety disorder [facility] Followup: [facility] - With: Private Physician - When: 1 - 2 days - Reason: Recheck today's complaints Discharge Instructions: - Discharge Summary Sheet [facility] - Mammogram [facility] - COVID-19 [facility] - COVID-19 Frequently Asked Questions [facility] Forms: - Medication Reconciliation Form [facility] - Thank You Letter [facility] Prescriptions: - ProAir HFA 90 mcg/actuation Inhalation HFA aerosol inhaler - inhale 2 puff by INHALATION route every 4-6 hours As needed; 1 Inhaler; [facility] Refills: 0, Product Selection Permitted Signatures: Dispatcher [employer] Demetris Damon RN RN 1 Lindsay Shanks FNP FNP [facility] Jimmy, Delmis, RN RN em6 Corrections: (The following items were deleted from the chart) 13:49 12:00 This 41 yrs old Female presents to ER via Ambulatory with complaints of Covid+, jh7 Breathing Difficulty, Breast Problem. jhDarius
--- NOTE | 2021-11-28 13:31 | ER ---
Nurse's Notes [facility] Name: Feli Espinoza Age: 41 yrs Sex: Female : 1980 Arrival Date: 11/28/2021 Time: 11:49 Bed 13 Private MD: Diagnosis: Coronavirus infection, unspecified;Generalized anxiety disorder Presentation: 11/28 11:57 Chief complaint: Patient states: Diagnosed with covid at [facility] on Monday. ll1 Reports pain and busing to bilateral lower breasts this month. Started to cry during exam, anxious or having breast CA. Ebola Screen: Patient denies travel to an Ebola-affected area in the 21 days before illness onset. No symptoms or risks identified at this time. Initial Sepsis Screen: Does the patient meet any 2 criteria? No. Patient's initial sepsis screen is negative. Does the patient have a suspected source of infection? No. Patient's initial sepsis screen is negative. Risk Assessment: Do you want to hurt yourself or someone else? Patient reports no desire to harm self or others. Onset of symptoms was October 29, 2021. 11:57 Method Of Arrival: Ambulatory ll1 11:57 Acuity: CARIDAD 3 ll1 12:00 Coronavirus screen: Client presents with at least one sign or symptom that may indicate em6 coronavirus-19. Standard/surgical mask placed on the client. Provider contacted for isolation considerations. Triage Assessment: 11:59 General: Appears distressed, uncomfortable, Behavior is anxious. Pain: Complains of ll1 pain in breasts Pain Quality of pain is described as aching. Respiratory: Reports cough that is Onset: The symptoms/episode began/occurred 5 days, the patient has mild shortness of breath. [employer] LIGHT: 13:00 LMP 11/11/2021 em6 Historical: - Allergies: 11:57 adhesive tape-silicones; ll1 - PMHx: 11:57 Anxiety; Hypertension; mitral valve prolapse; MVP; DDD; ll1 - PSHx: 11:57 breast reduction; ll1 - Immunization history:: Adult Immunizations up to date. - Social history:: Smoking status: Patient reports the use of cigarette tobacco products, denies chronic smoking, but will smoke occasionally. Screenin:13 Abuse screen: Denies threats or abuse. Nutritional screening: No deficits noted. em6 Tuberculosis screening: No symptoms or risk factors identified. Fall Risk None identified. No fall in past 12 months (0 pts). No secondary diagnosis (0 pts). IV access (20 points). Ambulatory Aid- None/Bed Rest/Nurse Assist (0 pts). Gait- Normal/Bed Rest/Wheelchair (0 pts) Mental Status- Oriented to own ability (0 pts). Total Barksdale Fall Scale indicates No Risk (0-24 pts). Assessment: 12:00 General: Appears in no apparent distress. comfortable, Behavior is cooperative, em6 anxious, crying. 12:00 Pain: Denies pain. Neuro: [place] Agitation-Sedation Scale (RASS): +1 Restless Level em6 of Consciousness is awake, alert, obeys commands, Oriented to person, place, time, situation. Cardiovascular: Reports shortness of breath, Denies chest pain, lightheadedness, Heart tones present Capillary refill < 3 seconds Patient's skin is warm and dry. Respiratory: Reports shortness of breath since 11/24/2021 Airway is patent Respiratory effort is even, unlabored, Breath sounds are clear bilaterally. GI: No signs and/or symptoms were reported involving the gastrointestinal system. : No signs and/or symptoms were reported regarding the genitourinary system. EENT: No signs and/or symptoms were reported regarding the EENT system. Derm: No signs and/or symptoms reported regarding the dermatologic system. Musculoskeletal: No signs and/or symptoms reported regarding the musculoskeletal system. 13:53 Reassessment: Patient appears in no apparent distress at this time. Patient and/or em6 family updated on plan of care and expected duration. Pain level reassessed. Patient states feeling better. Vital Signs: 11:57 BP 172 / 121; Pulse 86; Resp 20; Temp 98.7; Pulse Ox 100% ; Weight 58.97 kg; Height 5 ll1 ft. 1 in. (154.94 cm); Pain 5/10; 13:00 BP 124 / 89; Pulse 78; Resp 20; Pulse Ox 100% on R/A; em6 13:54 BP 119 / 100; Pulse 72; Resp 16; Pulse Ox 100% on R/A; Pain 0/10; em6 11:57 Body Mass Index 24.56 (58.97 kg, 154.94 cm) ll1 ED Course: 11:49 Patient arrived in ED. mr 11:51 HenryJunaid, RN is Primary Nurse. kevin 11:51 [facility] Darius 11:51 Twyla Alvarez MD is Attending Physician. [facility] 11:57 Arm band placed on Patient placed in an exam room, on a stretcher. ll1 11:59 Triage completed. ll1 12:00 Inserted saline lock: 20 gauge in right antecubital area, using aseptic technique. em6 Blood collected. 12:53 Chest Single View XRAY In Process Unspecified. EDMS 13:14 Patient has correct armband on for positive identification. Bed in low position. Call em6 light in reach. Side rails up X2. Pulse ox on. NIBP on. 13:55 No provider procedures requiring assistance completed. em6 13:55 IV discontinued, intact, bleeding controlled, No redness/swelling at site. Pressure em6 dressing applied. Administered Medications: 12:40 Drug: Ativan (LORazepam) 1 mg Route: IVP; Site: left antecubital; em6 Medication: 13:14 VIS not applicable for this client. em6 Outcome: 13:30 Discharge ordered by . [facility] 13:56 Discharged to home ambulatory, with family. em6 13:56 Condition: stable 13:56 Discharge instructions given to patient, family, Instructed on discharge instructions, follow up and referral plans. medication usage, Demonstrated understanding of instructions, follow-up care, medications, Prescriptions given X 1. 13:58 Patient left the ED. em6 Signatures: Dispatcher [employer] [facility] Breann Pope mr HenryJunaid, Demetris Vincent RN RN RN 1 Lindsay Shanks FNP FNP jh7 Martinez, Erika RN RN em6
[2021-11-28 14:20] VITALS: TEMP 98.7; O2SAT 100
[2021-11-28 14:24] VITALS: BP 119/100
== END 2021-11-28 13:58 | disposition home or self-care (01) ==
LOC: ER 11:45
DX: U07.1 COVID-19 (principal); F41.1 Generalized anxiety disorder; F17.210 Nicotine dependence, cigarettes, uncomplicated; Z80.3 Family history of malignant neoplasm of breast; Z91.048 Other nonmedicinal substance allergy status
CPT/HCPCS: 36415; 71045; 80048; 85025; 96374; 99284

== ENCOUNTER 2024-03-08 18:34 | Emergency (ER) | payer BC ==
[2024-03-08 20:17] LABS: Absolute Eosinophils 0.2 K/uL (0-0.5); Absolute Lymphocytes (CBC) 2.6 K/uL (0.7-4.9); Absolute Monocytes 0.6 K/uL (0.1-1.3); Absolute Neutrophil 3.9 K/uL (1.8-8.0); Basophils % 0.6 % (0-1.3); Eosinophils % 3.4 % (0-4.4); Hematocrit 38.6 % (36.0-45.0); Hemoglobin 13.3 g/dL (12.0-15.0); Lymphocytes % 35.5 % (15.3-44.8); MCH 31.8 pg (27.0-35.0); MCHC 34.4 g/dL (32.0-36.0); MCV 92.4 fL (80-100); MPV 8.3 fL (7.6-11.3); Monocytes % 7.7 % (3.3-12.3); Neutrophils % 52.8 % (41.7-73.7); Nucleated Red Blood Cells % 0.1 % (0-0); Platelets 215 thou/uL (152-406); RBC Red Blood Cell Count 4.18 M/uL (3.86-4.86); Red Cell Distribution Width 12.6 % (12.1-15.2)
[2024-03-08 20:19] LABS: PT Prothrombin Time 11.3 SECONDS (9.4-12.5); Protime INR 1.01
[2024-03-08 20:37] LABS: ALT/SGPT 39 U/L (13-56); AST/SGOT 21 U/L (15-37); Albumin/Globulin Ratio 1.1 (1.1-1.8); Alkaline Phosphatase 61 U/L (45-117); Anion Gap 8.6 mEq/L (5.0-15.0); BUN Blood Urea Nitrogen 18 mg/dL (7-18); Bicarbonate 26 mEq/L (21-32); Bilirubin Total 0.4 mg/dL (0.2-1.0); Globulin 3.8 g/dL (2.3-3.5); Glomerular Filtration Rate 113 ml/min (=/>90); Glucose Level 86 mg/dL (74-106); Potassium 3.6 mEq/L (3.5-5.1); Protein, Total 7.8 g/dL (6.4-8.2); Sodium Level 139 mEq/L (136-145)
[2024-03-08 20:39] LABS: Bilirubin Direct < 0.2 mg/dL (0-0.2); Bilirubin Indirect, Calculated 0.2 mg/dL (0.2-0.8)
--- NOTE | 2024-03-08 21:06 | RAD REPORT ---
EXAMINATION: UPPER EXTREMITY VENOUS UNILATE CLINICAL INDICATION: Arm pain TECHNIQUE: Complete bilateral duplex sonography of the right upper extremity veins was performed. The examination included compression for vein patency, color Doppler imaging and flow augmentation in response to distal compression of the internal jugular,, subclavian, axillary, brachial, radial, ulna r, cephalic and basilic veins. .Grayscale, color and spectral analysis performed on all vessels COMPARISON: No prior exam. FINDINGS: The internal jugular, subclavian, axillary, brachial, basilic, cephalic, radial and ulnar veins are g enerally compressible and demonstrate augmentation. Color Doppler demonstrates good flow. IMPRESSION: No evidence of venous thrombus right arm
[2024-03-08] MEDS ORDERED: METHYLPREDNISOLONE 40 MG INJ ONE (21:24)
[2024-03-08] MEDS ORDERED: FAMOTIDINE 20 MG TAB ONE (21:24)
[2024-03-08] MEDS ORDERED: DIPHENHYDRAMINE 50 MG/ML VIAL ONE (21:24)
[2024-03-08] MEDS ORDERED: MORPHINE 4 MG/ML SYR ONE (21:25)
--- NOTE | 2024-03-08 21:36 | RAD REPORT ---
Exam:Elbow Right 3 View HISTORY: Right elbow pain FINDINGS: No fracture or dislocation seen No bone or joint abnormality noted
--- NOTE | 2024-03-08 22:05 | EDPHYS ---
Physician Documentation [facility] Name: Feli Espinoza Age: 43 yrs Sex: Female : 1980 Arrival Date: 03/08/2024 Time: 18:34 Bed 11 Private MD: ED Physician Cornel Christie HPI: 03/08 20:00 This 43 yrs old Female presents to ER via Ambulatory with complaints of right elbow cp swelling with Hives. 20:00 The patient or guardian complains of pain, that is acute, swelling, tenderness. The cp complaints affect the right elbow. 20:00 Context: resulted from unknown cause. Onset: The symptoms/episode began/occurred today, cp couple hours ago. Treatment prior to arrival includes: no previous treatment. Patient is a 43-year-old female with past medical history significant for hypertension who presents to the emergency department with complaints of right elbow pain and swelling that started today, couple hours ago. She denies any injury. Upon further interview she expresses concern about a generalized rash that she has been dealing with for the past several months. She is seeing her primary care doctor who is prescribed steroids that do improve the rash but it does return. She was told that this was possibly due to her thyroid condition, which she believes she has hypothyroidism, and so she has been referred to a specialist for further evaluation of her thyroid. She does state that the rash is worse today as it usually is on her back and is now on her face and extremities. 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 - Infectious Disease History:: Denies. - Social history:: Smoking status: Patient denies any tobacco usage or history of. Patient uses alcohol, occasionally. ROS: 20:05 Constitutional: Negative for body aches, chills, fever, poor PO intake, cp 20:05 Eyes: Negative for injury, pain, redness, and discharge, cp 20:05 Respiratory: Negative for cough, shortness of breath, wheezing, 20:05 Abdomen/GI: Negative for abdominal pain, nausea, vomiting, and diarrhea, 20:05 MS/extremity: Positive for pain, swelling, tenderness, of the right elbow, Negative for injury or acute deformity, decreased range of motion, paresthesias, 20:05 Skin: Positive for rash, diffusely, 20:05 All other systems are negative, Exam: 20:10 Head/Face: Normocephalic, atraumatic. cp 20:10 Constitutional: The patient appears in no acute distress, alert, awake, non-toxic, well developed, well nourished, uncomfortable, 20:10 Eyes: Periorbital structures: appear normal, Conjunctiva: normal, no exudate, no injection, Sclera: no appreciated abnormality, Lids and lashes: appear normal, bilaterally, 20:10 ENT: External ear(s): are unremarkable, Nose: is normal, Mouth: Lips: moist, Oral mucosa: pink and intact, moist, Posterior pharynx: Airway: no evidence of obstruction, patent, 20:10 Cardiovascular: Rate: normal, Rhythm: regular, Edema: is not appreciated, JVD: is not appreciated, 20:10 Respiratory: the patient does not display signs of respiratory distress, Respirations: normal, no use of accessory muscles, no retractions, labored breathing, is not present, Breath sounds: are clear throughout, no decreased breath sounds, no stridor, no wheezing, 20:10 Abdomen/GI: Inspection: abdomen appears normal, Palpation: abdomen is soft and non-tender, in all quadrants, 20:10 Musculoskeletal/extremity: Extremities: noted in the right elbow: medial and lateral epicondyle tenderness, mild swelling noted, pain with AROM, There is no evidence of ecchymosis, erythema, Pulses: noted to be 2+ in the right radial artery, 20:10 Skin: rash can be described as urticarial, and is diffusely located, 20:10 Neuro: Orientation: to person, place \T\ time. Mentation: is normal, Motor: moves all fours, strength is normal, Sensation: no obvious gross deficits, Vital Signs: 19:08 BP 148 / 107; Pulse 89; Resp 19; Temp 97.5(TE); Pulse Ox 100% on R/A; MAP 119 mmHg; tm6 Weight 61.23 kg; Height 5 ft. 1 in. ; Pain 10/10; 21:40 BP 170 / 109; Pulse 93; Resp 18; Pulse Ox 100% ; Pain 9/10; tl4 19:08 Body Mass Index 25.51 (61.23 kg, 154.94 cm) tm6 19:08 Pain Scale: Adult tm6 21:40 Pain Scale: Adult tl4 MDM: 19:18 Medical Screening Exam initiated cp 20:00 Differential diagnosis: tendonitis, septic joint, dvt, cellulitis, urticaria, allergy. cp 22:03 Data reviewed: vital signs, nurses notes, lab test result(s), and as a result, I will cp discharge patient. 22:04 Counseling: I had a detailed discussion with the patient and/or guardian regarding the cp historical points, exam findings, and any diagnostic results supporting the discharge/admit diagnosis, lab results, the need for outpatient follow up, an allergy/program management specialist, a family practitioner, to return to the emergency department if symptoms worsen or persist or if there are any questions or concerns that arise at home. 22:04 Care significantly affected by the following chronic conditions: Hypertension. Response cp to treatment: the patient's symptoms have mildly improved after treatment, and as a result, I will discharge patient. 03/08 19:56 Order name: Basic Metabolic Panel; Complete Time: 20:49 cp 03/08 20:49 Interpretation: Normal except: CL 108. cp 03/08 19:56 Order name: CBC with Diff; Complete Time: 20:49 cp 03/08 19:56 Order name: LFT's; Complete Time: 20:49 cp 03/08 20:50 Interpretation: Normal except: GLOB 3.8; Reviewed. cp 03/08 19:56 Order name: Magnesium; Complete Time: 20:49 cp 03/08 19:56 Order name: PT-INR; Complete Time: 20:49 cp 03/08 19:56 Order name: XRAY Elbow RIGHT 3 view; Complete Time: 21:51 cp 03/08 20:09 Order name: UPPER EXTREMITY VENOUS UNILATE; Complete Time: 21:51 EDMS 03/08 19:56 Order name: Cardiac monitoring; Complete Time: 21:20 cp 03/08 19:56 Order name: IV Saline Lock; Complete Time: 20:09 cp 03/08 19:56 Order name: Labs collected and sent; Complete Time: 20:09 cp 03/08 19:56 Order name: O2 Per Protocol; Complete Time: 21:20 cp 03/08 19:56 Order name: O2 Sat Monitoring; Complete Time: 21:20 cp Administered Medications: 21:37 Drug: diphenhydrAMINE IVP 50 mg IVP once Route: IVP; Site: left antecubital; tl4 22:59 Follow up: Response: No adverse reaction tl4 21:37 Drug: MethylPrednisoLONE IVP 80 mg IVP once Route: IVP; Site: left antecubital; tl4 22:59 Follow up: Response: No adverse reaction tl4 21:38 Drug: morphine IVP or IV 4 mg IVP once over 4 mins Route: IVP; Infused Over: 4 mins; tl4 Site: left antecubital; 22:59 Follow up: Response: No adverse reaction; Pain is decreased tl4 21:38 Drug: Famotidine PO 10 mg PO once Route: PO; tl4 22:58 Follow up: Response: No adverse reaction tl4 Disposition Summary: 03/08/24 22:04 Discharge Ordered Notes: Location: Home cp Problem: new cp Symptoms: have improved cp Condition: Stable cp Diagnosis - Urticaria, unspecified cp - Pain in right elbow cp Followup: cp - With: Private Physician - When: 2 - 3 days - Reason: Recheck today's complaints Discharge Instructions: - Discharge Summary Sheet cp - Joint Pain cp - Hives cp Forms: - Medication Reconciliation Form cp - Antibiotic Education cp - Prescription Opioid Use cp - Patient Portal Instructions cp - Leadership Thank You Letter cp Prescriptions: - Zyrtec 10 mg Oral Tablet - take 1 tablet ORAL route once daily As needed; 20 tablet; Refills: 0, Product cp Selection Permitted - Medrol (Kumar) 4 mg Oral Tablets, Dose Pack - take 1 tablet ORAL route as directed - follow package instructions; 1 packet; cp Refills: 0, Product Selection Permitted - methocarbamol 750 mg Oral tablet - take 1 tablet ORAL route 4 times per day; 30 tablet; Refills: 0, Product cp Selection Permitted Signatures: Dispatcher [employer] EDMS Carlos Martinez PA PA cp Masterson, Tawney RN RN tm6 LogPaulino fernández RN RN tl4 Corrections: (The following items were deleted from the chart) 19:56 19:56 BASIC METABOLIC PANEL+C.LAB.BRZ ordered. EDMS EDMS 19:56 19:56 CBC+H.LAB.BRZ ordered. EDMS EDMS 19:56 19:56 HEPATIC FUNCTION+C.LAB.BRZ ordered. EDMS EDMS 19:56 19:56 MAGNESIUM+C.LAB.BRZ ordered. EDMS EDMS 19:56 19:56 PROTIME (+INR)+COAG.LAB.BRZ ordered. EDMS EDMS 20:09 19:56 Extremity Venous Uni Ltd+US.RAD.BRZ ordered. EDMS EDMS 03/09 22:42 22:38 Constitutional: The patient appears in no acute distress, alert, awake, cp non-toxic, well developed, well nourished, uncomfortable, cp 22:42 22:38 Head/Face: Normocephalic, atraumatic. cp cp 22:42 22:38 Eyes: Periorbital structures: appear normal, Conjunctiva: normal, no exudate, no cp injection, Sclera: no appreciated abnormality, Lids and lashes: appear normal, bilaterally, cp 22:42 22:38 ENT: External ear(s): are unremarkable, Nose: is normal, Mouth: Lips: moist, Oral cp mucosa: pink and intact, moist, Posterior pharynx: Airway: no evidence of obstruction, patent, cp 22:42 22:38 Cardiovascular: Rate: normal, Rhythm: regular, Edema: is not appreciated, JVD: is cp not appreciated, cp 22:42 22:38 Respiratory: the patient does not display signs of respiratory distress, cp Respirations: normal, no use of accessory muscles, no retractions, labored breathing, is not present, Breath sounds: are clear throughout, no decreased breath sounds, no stridor, no wheezing, cp 22:42 22:38 Abdomen/GI: Inspection: abdomen appears normal, Palpation: abdomen is soft and cp non-tender, in all quadrants, cp 22:42 22:38 Neuro: Orientation: to person, place \T\ time. Mentation: is normal, Motor: moves cp all fours, strength is normal, Sensation: no obvious gross deficits, cp 22:42 22:38 Musculoskeletal/extremity: Extremities: noted in the right elbow: medial and cp lateral epicondyle tenderness, mild swelling noted, pain with AROM, There is no evidence of ecchymosis, erythema, Pulses: noted to be 2+ in the right radial artery, cp 22:42 22:38 Skin: rash can be described as urticarial, and is diffusely located, cp cp
--- NOTE | 2024-03-08 22:05 | ER ---
Nurse's Notes [facility] Name: Feli Espinoza Age: 43 yrs Sex: Female : 1980 Arrival Date: 03/08/2024 Time: 18:34 Bed 11 Private MD: Diagnosis: Urticaria, unspecified;Pain in right elbow Presentation: 03/08 19:10 Chief complaint: Patient states: right elbow swelling and pain starting a few hours tm6 ago. Intense joint pain started a few weeks ago, went to PCP -- was given steroid. Today sharp shooting pains started in right elbow, as well as swelling and rash. Coronavirus screen: Client denies travel out of the [place] in the last 14 days. Ebola Screen: Patient negative for fever greater than or equal to 101.5 degrees Fahrenheit, and additional compatible Ebola Virus Disease symptoms Patient denies exposure to infectious person. Patient denies travel to an Ebola-affected area in the 21 days before illness onset. No symptoms or risks identified at this time. Initial Sepsis Screen: Does the patient meet any 2 criteria? No. Patient's initial sepsis screen is negative. Does the patient have a suspected source of infection? No. Patient's initial sepsis screen is negative. Risk Assessment: Do you want to hurt yourself or someone else? Patient reports no desire to harm self or others. Onset of symptoms was March 08, 2024. 19:10 Method Of Arrival: Ambulatory tm6 19:10 Acuity: CARIDAD 4 tm6 Triage Assessment: 19:10 General: Appears uncomfortable, Behavior is calm, cooperative. Pain: Complains of pain tm6 in right arm Pain currently is 10 out of 10 on a pain scale. Quality of pain is described as sharp, shooting, Pain began today. EENT: No signs and/or symptoms were reported regarding the EENT system. Neuro: Level of Consciousness is awake, alert, obeys commands, Oriented to person, place, time, situation. Cardiovascular: Patient's skin is warm and dry. Respiratory: Airway is patent Respiratory effort is even, unlabored, Respiratory pattern is regular, symmetrical. GI: No signs and/or symptoms were reported involving the gastrointestinal system. Abdomen is flat, non-distended. : No signs and/or symptoms were reported regarding the genitourinary system. Derm: Reports rash on right arm. Musculoskeletal: Reports pain in right arm Pain is 10 out of 10 on a pain scale. 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 - Infectious Disease History:: Denies. - Social history:: Smoking status: Patient denies any tobacco usage or history of. Patient uses alcohol, occasionally. Screenin:[facility] ED Fall Risk Assessment (Adult) History of falling in the last 3 months, tl4 including since admission No falls in past 3 months (0 pts) Confusion or Disorientation No (0 pts) Intoxicated or Sedated No (0 pts) Impaired Gait No (0 pts) Mobility Assist Device Used No (0 pt) Altered Elimination No (0 pt) Score/Fall Risk Level 0 - 2 = Low Risk Oriented to surroundings, Maintained a safe environment, Educated pt \T\ family on fall prevention, incl call for assistance when getting out of bed, Assessed \T\ reinforced patient's understanding of fall precautions. Abuse screen: Denies threats or abuse. Denies injuries from another. Nutritional screening: No deficits noted. Tuberculosis screening: No symptoms or risk factors identified. Assessment: 21:38 General: Appears in no apparent distress. Behavior is calm, cooperative. Pain: tl4 Complains of pain in right arm. Neuro: Level of Consciousness is awake, alert, obeys commands, Oriented to person, place, time, situation. Cardiovascular: Capillary refill < 3 seconds Patient's skin is warm and dry. Respiratory: Airway is patent Respiratory effort is even, unlabored, Respiratory pattern is regular, symmetrical, Breath sounds are clear bilaterally. GI: No signs and/or symptoms were reported involving the gastrointestinal system. : No signs and/or symptoms were reported regarding the genitourinary system. EENT: No signs and/or symptoms were reported regarding the EENT system. Derm: Reports itching, pt states she has hives to right elbow, unable to visualize. Musculoskeletal: No signs and/or symptoms reported regarding the musculoskeletal system. Vital Signs: 19:08 BP 148 / 107; Pulse 89; Resp 19; Temp 97.5(TE); Pulse Ox 100% on R/A; MAP 119 mmHg; tm6 Weight 61.23 kg; Height 5 ft. 1 in. ; Pain 10/10; 21:40 BP 170 / 109; Pulse 93; Resp 18; Pulse Ox 100% ; Pain 9/10; tl4 19:08 Body Mass Index 25.51 (61.23 kg, 154.94 cm) tm6 19:08 Pain Scale: Adult tm6 21:40 Pain Scale: Adult tl4 ED Course: 18:38 Patient arrived in ED. ra3 18:56 Carlos Martinez PA is PHCP. cp 18:56 Crow Stern MD is Attending Physician. cp 19:10 Arm band placed on left wrist. tm6 19:11 Triage completed. tm6 19:13 Allergy band placed. tm6 20:09 Basic Metabolic Panel Sent. tm6 20:09 CBC with Diff Sent. tm6 20:09 LFT's Sent. tm6 20:09 Magnesium Sent. tm6 20:09 PT-INR Sent. tm6 20:09 Inserted saline lock: 20 gauge in left antecubital area, using aseptic technique. Blood tm6 collected. Flushed with 10 mL NS. 20:54 UPPER EXTREMITY VENOUS UNILATE In Process Unspecified. EDMS 21:10 XRAY Elbow RIGHT 3 view In Process Unspecified. EDMS 21:41 Provided Education on: ed process, call garcia. Client placed on continuous cardiac and tl4 pulse oximetry monitoring. NIBP monitoring applied. Door closed. Noise minimized. Lights dimmed. Moved to private room. 21:41 No provider procedures requiring assistance completed. tl4 21:52 Cornel Christie MD is Attending Physician. cp 23:00 IV discontinued, intact, bleeding controlled, No redness/swelling at site. Pressure tl4 dressing applied. Administered Medications: 21:37 Drug: diphenhydrAMINE IVP 50 mg IVP once Route: IVP; Site: left antecubital; tl4 22:59 Follow up: Response: No adverse reaction tl4 21:37 Drug: MethylPrednisoLONE IVP 80 mg IVP once Route: IVP; Site: left antecubital; tl4 22:59 Follow up: Response: No adverse reaction tl4 21:38 Drug: morphine IVP or IV 4 mg IVP once over 4 mins Route: IVP; Infused Over: 4 mins; tl4 Site: left antecubital; 22:59 Follow up: Response: No adverse reaction; Pain is decreased tl4 21:38 Drug: Famotidine PO 10 mg PO once Route: PO; tl4 22:58 Follow up: Response: No adverse reaction tl4 Medication: 21:40 VIS not applicable for this client. tl4 Outcome: 22:04 Discharge ordered by MD. irizarry 23:00 Discharged to home ambulatory, with family, tl4 23:00 Condition: stable 23:00 Discharge instructions given to patient, Instructed on discharge instructions, follow up and referral plans. medication usage, Demonstrated understanding of instructions, follow-up care, medications, Prescriptions given X 3, 23:00 Patient left the ED. tl4 Signatures: Dispatcher [employer] EDMS Carlos Martinez PA PA cp Masterson, Tawney, RN RN tm6 Paulino Kim RN RN tl4 Alyssa Ledezma 3
[2024-03-08 23:30] VITALS: TEMP 97.5; O2SAT 100
[2024-03-08 23:31] VITALS: BP 170/109
== END 2024-03-08 23:00 | disposition home or self-care (01) ==
LOC: ER 18:34
DX: L50.9 Urticaria, unspecified (principal); M25.521 Pain in right elbow; I10 Essential (primary) hypertension
CPT/HCPCS: 85025; 80048; 36415; 83735; 85610; 80076; 73080; 93971; 96375; 96374; 99284; J1200; J2919